=== PATIENT | male | born 1960 | race Caucasian/White ===

== ENCOUNTER 2019-01-20 08:09 | Day surgery (SDC) | payer BC ==
[2019-01-16 11:31] VITALS: BMI 31.5
[2019-01-20] MEDS ORDERED: LIDOCAINE 1% 20 ML VIAL (10MG/ML) FOR IV START INTRADERMA PRN (08:27)
[2019-01-20] MEDS ORDERED: LACTATED RINGERS 1,000 ML IV SCH (08:27)
[2019-01-20 08:30] VITALS: TEMP 98.1
--- NOTE | 2019-01-20 10:18 | P.GSHP ---
History of Present Illness H&P Date: 01/20/19 Chief Complaint: GI bleed, Hemoccult positive This is a 5-year-old male who presents today for colonoscopy. Patient has Hemoccult-positive. He denies any bright red blood per rectum. Past Medical History Past Medical History: Asthma, GERD/Reflux, Hypertension Additional Past Medical History / Comment(s): envionmental allergies. 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, surgery to repair tendons thumb Past Anesthesia/Blood Transfusion Reactions: No Reported Reaction Smoking Status: Former smoker - Past Family History Sister(s) Family Medical History: Coronary Artery Disease (CAD), Diabetes Mellitus Father Family Medical History: Myocardial Infarction ([place]) Additional Family Medical History / Comment(s): at 39 heart attack Medications and Allergies Home Medications Medication Instructions Recorded Confirmed Type Ascorbic Acid [Vitamin C] 500 mg PO DAILY 01/16/19 01/20/19 History Budesonide/Formoterol Fumarate 2 puff INHALATION BID 01/16/19 01/20/19 History [Symbicort 160-4.5 Mcg Inhaler] Budesonide/Formoterol Fumarate 1 puff INHALATION BID 01/16/19 01/20/19 History [Symbicort 80-4.5 Mcg Inhaler] Glucosamine/Chondr Harrell A Sod [Osteo 1 each PO DAILY 01/16/19 01/20/19 History Bi-Flex Caplet] Losartan Potassium 50 mg PO DAILY 01/16/19 01/20/19 History Montelukast [Singulair] 10 mg PO DAILY 01/16/19 01/20/19 History Multivitamin/Iron/Folic Acid 1 each PO DAILY 01/16/19 01/20/19 History [Centrum Adults Tablet] amLODIPine BESYLATE 5 mg PO DAILY 01/16/19 01/20/19 History Allergies Allergy/AdvReac Type Severity Reaction Status Date / Time cat dander Allergy Unknown Verified 01/20/19 08:27 tree and shrub pollen Allergy Unknown Verified 01/20/19 08:27 Surgical - Exam Vital Signs Temp Pulse Resp BP Pulse Ox 98.1 F 78 16 163/90 94 L 01/20/19 08:27 01/20/19 08:27 01/20/19 08:27 01/20/19 08:27 01/20/19 08:27 - General well developed, well nourished, no distress - Eyes PERRL - ENT normal pinna - Neck no masses - Respiratory normal expansion - Cardiovascular Rhythm: regular - Abdomen Abdomen: soft, non tender Assessment and Plan Assessment: Hemoccult-positive stool. We'll perform colonoscopy.
--- NOTE | 2019-01-20 10:34 | P.OP ---
Date of Procedure: 01/20/19 Preoperative Diagnosis: Hemoccult-positive stool Postoperative Diagnosis: Rectal polyp Diverticulosis Procedure(s) Performed: Colonoscopy Anesthesia: MAC Surgeon: Jhonatan Gutierrez Pathology: other (Rectal polyp) Condition: stable Disposition: PACU Description of Procedure: The patient's placed on the endoscopy table in the lateral position. He received IV sedation per digital rectal exam was performed which revealed no abnormalities. The flexible colonoscope was then placed patient anus and passed throughout the entire colon. The ileocecal valve was visualized. The cecum, ascending and transverse colon appeared normal. In the descending and sigmoid colon there was extensive diverticular changes. There is no unsteady diverticulitis. Scope was then brought back the rectum and at the 20 cm cecil there was a sessile polyp and this was removed with the snare and cold forcep. Scope was withdrawn for patient.
[2019-01-20 10:52] VITALS: RESP 18
[2019-01-20 11:44] VITALS: BP 122/75; PULSE 71
== END 2019-01-20 11:15 | disposition home or self-care (01) ==
LOC: ORWHC2ENDO 08:09
PROVIDERS: ATTEND Surgery
DX: K62.1 Rectal polyp (principal); I10 Essential (primary) hypertension; J45.909 Unspecified asthma, uncomplicated; K21.9 Gastro-esophageal reflux disease without esophagitis; Z82.49 Family history of ischemic heart disease and other diseases of the circulatory system; Z83.3 Family history of diabetes mellitus; Z87.442 Personal history of urinary calculi; Z87.891 Personal history of nicotine dependence; Z79.51 Long term (current) use of inhaled steroids; Z79.899 Other long term (current) drug therapy; Z91.048 Other nonmedicinal substance allergy status
CPT/HCPCS: 45380; 45385; 88305

== ENCOUNTER → 2019-02-06 | Outpatient (CLI) | payer BC ==
[2019-02-06 07:36] LABS: Basophils # (A) 0.1 k/uL (0-0.2); Basophils % (A) 1 %; Eosinophils # (A) 0.7 k/uL (0-0.7); Eosinophils % (A) 7 %; HCT 40.3 % (39.0-53.0); HGB 14.3 gm/dL (13.0-17.5); Lymphocytes # (A) 3.4 k/uL (1.0-4.8); Lymphocytes % (A) 33 %; MCH 29.1 pg (25.0-35.0); MCHC 35.4 g/dL (31.0-37.0); MCV 82.2 fL (80.0-100.0); Mean Platelet Volume 5.9; Monocytes # (A) 0.5 k/uL (0-1.0); Monocytes % (A) 5 %; Neutrophils # (A) 5.3 k/uL (1.3-7.7); Neutrophils % (A) 52 %; Platelet Count 267 k/uL (150-450); RDW 12.7 % (11.5-15.5)
[2019-02-06 16:15] LABS: African American GFR (CKD) 84.1 (60.0-200.0); Albumin 4.3 g/dL (3.80-4.90); Albumin/Globulin Ratio 2.15 (1.60-3.17); Anion Gap 9.5 mmol/L (4.00-12.00); Calcium 9.5 mg/dL (8.7-10.3); Carbon Dioxide 24.5 mmol/L (21.6-31.8); Potassium 4.7 mmol/L (3.5-5.5); Total Bilirubin 0.6 mg/dL (0.3-1.2); Total Protein 6.3 g/dL (6.2-8.2)
== END | disposition home or self-care (01) ==
LOC: LABWHC1 06:39
PROVIDERS: ATTEND Nurse Practitioner Acute Care
DX: G45.9 Transient cerebral ischemic attack, unspecified (principal)
CPT/HCPCS: 36415; 80053; 80061; 83090; 85025

== ENCOUNTER 2019-02-19 21:15 | Inpatient (IN) | payer BC ==
[2019-02-19 22:03] LABS: Basophils # (A) 0.2 k/uL (0-0.2); Basophils % (A) 1 %; Eosinophils # (A) 0.3 k/uL (0-0.7); Eosinophils % (A) 2 %; HCT 41.8 % (39.0-53.0); HGB 14.1 gm/dL (13.0-17.5); Lymphocytes # (A) 3.7 k/uL (1.0-4.8); Lymphocytes % (A) 25 %; MCH 28.4 pg (25.0-35.0); MCHC 33.6 g/dL (31.0-37.0); MCV 84.5 fL (80.0-100.0); Mean Platelet Volume 7.1; Monocytes # (A) 0.7 k/uL (0-1.0); Monocytes % (A) 5 %; Neutrophils % (A) 66 %; Platelet Count 278 k/uL (150-450); RBC 4.95 m/uL (4.30-5.90); RDW 12.6 % (11.5-15.5); WBC 15.1 k/uL (3.8-10.6)
--- NOTE | 2019-02-19 22:05 | CT ---
EXAMINATION TYPE: CT brain wo con for TPA DATE OF EXAM: 02/19/2019 COMPARISON: Headache HISTORY: Headache and arm numbness. CT DLP: 1131.4 mGycm Automated exposure control for dose reduction was used. FINDINGS: There is some cerebral atrophy. There is no mass effect nor midline shift. There is no sign of intrac ranial hemorrhage. The calvarium is intact. There is a 2 x 1 cm linear area of hypodensity right cere bellar hemisphere consistent with old cerebellar vertical infarct. IMPRESSION: CEREBRAL ATROPHY. 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 NO ACUTE INTRACRANIAL ABNORMALITY.
[2019-02-19 22:18] LABS: African American GFR (CKD) >90 (>60 ml/min/1.73 sqM); Anion Gap 11 mmol/L; Blood Urea Nitrogen 17 mg/dL (9-20); Calcium 9.3 mg/dL (8.4-10.2); Carbon Dioxide 22 mmol/L (22-30); Chloride 104 mmol/L (98-107); Glucose 120 mg/dL (74-99); Sodium 137 mmol/L (137-145); Total Bilirubin 0.7 mg/dL (0.2-1.3)
[2019-02-19 22:29] LABS: ALT 29 U/L (21-72); AST 36 U/L (17-59); Albumin 4.4 g/dL (3.5-5.0); Alkaline Phosphatase 37 U/L (38-126); Potassium 4.7 mmol/L (3.5-5.1); Total Protein 7.4 g/dL (6.3-8.2)
[2019-02-19] MEDS ORDERED: diphenhydrAMINE 50 MG/ML 1 ML VIAL IVP STA (22:36)
[2019-02-19] MEDS ORDERED: METOCLOPRAMIDE 5 MG/ML 2 ML VIAL IVP STA (22:36)
[2019-02-19] MEDS ORDERED: KETOROLAC 30 MG/ML 1 ML VIAL IVP STA (22:36)
--- NOTE | 2019-02-19 22:39 | ED ---
Headache HPI - General Chief Complaint: Headache Stated Complaint: Headache, nausea Time Seen by Provider: 02/19/19 21:43 Mode of arrival: EMS Limitations: no limitations - History of Present Illness Initial Comments: This patient is 59-year-old man who presents to be evaluated for headache. Patient states that the pain came on tonight while he was watching television. He describes it as being in the right frontal and right retro-orbital area. He states that when it came on it was severe, it has subsequently decreased in intensity a little bit. Pain is constant, sharp. He has not noted any worsening or relieving factors. There was also little bit of nausea and he did vomit. The patient states that he also has had some right sided numbness that has been going on for approximately 2 weeks. The patient states that when this came on, February 01, he went to [facility]. He had a CAT scan there, and then has subsequent only followed up with the neurologist through [facility]. He has had both MRI and MRA performed within the past week, but is not aware of any results yet. Patient states that the facial and leg numbness that had developed 2 weeks ago have improved though he does continue to have some right arm numbness. He rates it mild. No new neurologic symptoms associated with this headache. MD Complaint: headache -: hour(s) Onset Description: sudden Location: right, frontal, retro-orbital Severity: severe Quality: aching Consistency: constant Improves With: nothing Worsens With: none Context: occurred at rest Associated Symptoms: nausea Treatments Prior to Arrival: none - Related Data Home Medications Medication Instructions Recorded Confirmed Budesonide/Formoterol Fumarate 2 puff INHALATION RT-BID 01/16/19 02/19/19 [Symbicort 80-4.5 Mcg Inhaler] Montelukast [Singulair] 10 mg PO DAILY 01/16/19 02/19/19 amLODIPine BESYLATE 5 mg PO DAILY 01/16/19 02/19/19 Previous Rx's Medication Instructions Recorded Aspirin 325 mg PO DAILY tab 02/25/19 Atorvastatin [Lipitor] 40 mg PO HS tab 02/25/19 Docusate [Colace] 100 mg PO Q8HR cap 02/25/19 Famotidine [Pepcid] 20 mg PO BID tab 02/25/19 Warfarin [Coumadin] 5 mg PO ONCE@1800 tab 02/25/19 Allergies Allergy/AdvReac Type Severity Reaction Status Date / Time cat dander Allergy Unknown Verified 02/19/19 22:43 tree and shrub pollen Allergy Unknown Verified 02/19/19 22:43 Review of Systems ROS Statement: Those systems with pertinent positive or pertinent negative responses have been documented in the HPI. ROS Other: All systems not noted in ROS Statement are negative. Constitutional: Denies: fever, chills, weakness Eyes: Reports: as per HPI, eye pain. Denies: eye discharge, vision change ENT: Denies: ear pain, hearing loss Respiratory: Denies: cough, dyspnea Cardiovascular: Denies: chest pain, palpitations, syncope Gastrointestinal: Reports: as per HPI, nausea, vomiting. Denies: abdominal pain Genitourinary: Denies: dysuria, hematuria Musculoskeletal: Denies: back pain Skin: Denies: rash Neurological: Reports: as per HPI, headache, numbness. Denies: weakness, confusion, vertigo Hematological/Lymphatic: Denies: easy bleeding Past Medical History Past Medical History: Asthma, GERD/Reflux, Hypertension Additional Past Medical History / Comment(s): envionmental allergies. 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, surgery to repair tendons thumb Past Anesthesia/Blood Transfusion Reactions: No Reported Reaction Past Psychological History: No Psychological Hx Reported Smoking Status: Former smoker Past Alcohol Use History: Occasional Past Drug Use History: None Reported - Past Family History Sister(s) Family Medical History: Coronary Artery Disease (CAD), Diabetes Mellitus Father Family Medical History: Myocardial Infarction ([place]) Additional Family Medical History / Comment(s): at 39 heart attack General Exam Limitations: no limitations General appearance: alert, in no apparent distress Head exam: Present: atraumatic, normocephalic Eye exam: Present: normal appearance, PERRL, EOMI. Absent: scleral icterus, conjunctival injection, nystagmus ENT exam: Present: normal oropharynx Neck exam: Present: normal inspection Respiratory exam: Present: normal lung sounds bilaterally. Absent: respiratory distress, wheezes, rales, rhonchi, stridor Cardiovascular Exam: Present: regular rate, normal rhythm, normal heart sounds. Absent: systolic murmur, diastolic murmur, rubs, gallop GI/Abdominal exam: Present: soft. Absent: distended, tenderness, guarding, rebound, rigid, mass Extremities exam: Present: normal inspection, normal capillary refill. Absent: pedal edema, calf tenderness Back exam: Present: normal inspection. Absent: CVA tenderness (R), CVA tenderness (L) Neurological exam: Present: alert, oriented X3, CN II-XII intact. Absent: motor sensory deficit Skin exam: Present: warm, dry, intact, normal color. Absent: rash Course Vital Signs 02/19/19 02/19/19 02/19/19 21:24 22:23 23:57 Temperature 98.6 F Pulse Rate 65 86 83 Pulse Rate [ Left Pulse Oximetery] Respiratory 16 18 19 Rate Blood Pressure 140/90 139/81 131/88 O2 Sat by Pulse 97 97 98 Oximetry 02/20/19 00:45 Temperature Pulse Rate Pulse Rate [ 72 Left Pulse Oximetery] Respiratory 17 Rate Blood Pressure O2 Sat by Pulse Oximetry Medical Decision Making - Medical Decision Making Patient is 59-year-old man with right retro-orbital headache. On the patient's computed tomography scan tonight there is a right cerebellar infarct identified which is not on the patient's computed tomography scan from 02/01. We'll admit patient to have neurology consultation. - Lab Data Result diagrams: 02/23/19 06:20 02/19/19 21:30 Lab Results 02/19/19 02/19/19 02/19/19 Range/Units 21:30 21:30 21:30 WBC 15.1 H (3.8-10.6) k/uL RBC 4.95 (4.30-5.90) m/uL Hgb 14.1 (13.0-17.5) gm/dL Hct 41.8 (39.0-53.0) % MCV 84.5 (80.0-100.0) fL MCH 28.4 (25.0-35.0) pg MCHC 33.6 (31.0-37.0) g/dL RDW 12.6 (11.5-15.5) % Plt Count 278 (150-450) k/uL Neutrophils % 66 % Lymphocytes % 25 % Monocytes % 5 % Eosinophils % 2 % Basophils % 1 % Neutrophils # 10.0 H (1.3-7.7) k/uL Lymphocytes # 3.7 (1.0-4.8) k/uL Monocytes # 0.7 (0-1.0) k/uL Eosinophils # 0.3 (0-0.7) k/uL Basophils # 0.2 (0-0.2) k/uL ESR Cancelled Sodium 137 (137-145) mmol/L Potassium 4.7 (3.5-5.1) mmol/L Chloride 104 (98-107) mmol/L Carbon Dioxide 22 (22-30) mmol/L Anion Gap 11 mmol/L BUN 17 (9-20) mg/dL Creatinine 0.85 (0.66-1.25) mg/dL Est GFR (CKD-EPI)AfAm >90 (>60 ml/min/1.73 sqM) Est GFR (CKD-EPI)NonAf >90 (>60 ml/min/1.73 sqM) Glucose 120 H (74-99) mg/dL Estimated Ave Glu mg/dL Hemoglobin A1c (4.0-6.0) % Calcium 9.3 (8.4-10.2) mg/dL Total Bilirubin 0.7 (0.2-1.3) mg/dL AST 36 (17-59) U/L ALT 29 (21-72) U/L Alkaline Phosphatase 37 L (38-126) U/L Troponin I <0.012 (0.000-0.034) ng/mL Total Protein 7.4 (6.3-8.2) g/dL Albumin 4.4 (3.5-5.0) g/dL 02/19/19 02/19/19 Range/Units 22:30 22:30 WBC (3.8-10.6) k/uL RBC (4.30-5.90) m/uL Hgb (13.0-17.5) gm/dL Hct (39.0-53.0) % MCV (80.0-100.0) fL MCH (25.0-35.0) pg MCHC (31.0-37.0) g/dL RDW (11.5-15.5) % Plt Count (150-450) k/uL Neutrophils % % Lymphocytes % % Monocytes % % Eosinophils % % Basophils % % Neutrophils # (1.3-7.7) k/uL Lymphocytes # (1.0-4.8) k/uL Monocytes # (0-1.0) k/uL Eosinophils # (0-0.7) k/uL Basophils # (0-0.2) k/uL ESR 4 Sodium (137-145) mmol/L Potassium (3.5-5.1) mmol/L Chloride (98-107) mmol/L Carbon Dioxide (22-30) mmol/L Anion Gap mmol/L BUN (9-20) mg/dL Creatinine (0.66-1.25) mg/dL Est GFR (CKD-EPI)AfAm (>60 ml/min/1.73 sqM) Est GFR (CKD-EPI)NonAf (>60 ml/min/1.73 sqM) Glucose (74-99) mg/dL Estimated Ave Glu mg/dL 105 Hemoglobin A1c 5.3 (4.0-6.0) % Calcium (8.4-10.2) mg/dL Total Bilirubin (0.2-1.3) mg/dL AST (17-59) U/L ALT (21-72) U/L Alkaline Phosphatase (38-126) U/L Troponin I (0.000-0.034) ng/mL Total Protein (6.3-8.2) g/dL Albumin (3.5-5.0) g/dL - EKG Data -: EKG Interpreted by Me EKG shows normal: sinus rhythm, axis (Normal), intervals (Normal), QRS complexes (Incomplete right bundle branch block), ST-T waves (Normal) Rate: normal (Rate 76 bpm) Disposition Clinical Impression: Headache, Stroke Disposition: ADMITTED IP TO THIS [facility] Condition: Fair
[2019-02-19] MEDS ORDERED: ONDANSETRON 4 MG/2 ML VIAL IVP STA (22:43)
[2019-02-20] MEDS ORDERED: ASPIRIN 325 MG TAB PO STA (00:12)
[2019-02-20] MEDS: SODIUM CHLORIDE 0.9% 1,000 ML IV SCH ×2 (00:32→23:20)
[2019-02-20] MEDS: SYMBICORT 80-4.5 MCG INHALER INHALATION SCH ×2 (06:58→20:19)
[2019-02-20] MEDS: MONTELUKAST 10 MG TAB PO SCH (08:12)
[2019-02-20] MEDS: DOCUSATE 100 MG CAP PO SCH ×3 (08:12→23:20)
[2019-02-20] MEDS: FAMOTIDINE 20 MG TAB PO SCH ×2 (08:12→20:15)
[2019-02-20] MEDS: amLODIPine 5 MG TAB PO SCH (08:12)
[2019-02-20] MEDS ORDERED: LOSARTAN 50 MG TAB PO SCH (09:00)
--- NOTE | 2019-02-20 10:45 | P.CNNES ---
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 Patient states that over 2 weeks ago on 02/01/2019 he got up and noticed right side of body became numb. It affected whole right side of the body. He went to [facility], patient he underwent computed tomography scan of the head and the cervical spine which were normal. Computed tomography scan of cervical spine showed [id number] degenerative changes within the cervical spine with bilateral intervertebral foraminal narrowing at C6 7. He was released and was recommended to follow up with neurologist locally. Patient saw Dr Ramirez, who initiated an MRI of the brain and MRA of the head. Patient states that his right arm has stayed numb, although the right leg has somewhat improved or he has gotten used to it. He was otherwise doing fine. On 02/15/2019, at night he threw up, and felt lightheaded, dizzy. On Sunday he stayed lightheaded. He was otherwise stable. Last night he developed sudden onset of headache involving right orbital temporal region. He took something for headache and then got sweaty, weird feeling, eyes became blurred and he felt his eyes were shaky, "googly eyes". He started vomiting felt vertigo. Due to these symptoms he decided to come to the hospital. Patient underwent computed tomography scan of the head last night, which revealed cerebral atrophy. Old right cerebellar cortical infarct. No acute intracranial abnormality. This infarct is new as compared to the computed tomography scan of head from 02/01/2019. Patient was not a candidate for TPA, because of presence of subacute stroke. Patient states that he does not take any antiplatelet medication at home. He takes losartan, amlodipine, Symbicort and Singulair. Patient has history of hypertension, but denies diabetes. He does not know about his cholesterol status. He quit tobacco 20 years ago. He drinks beer couple times a week. Patient denies any history of head or neck trauma in the last 6 months to a year. Patient states that he does see chiropractor once a month. The last time he saw the chiropractor was about couple months ago. He does get neck adjustment. Patient's EKG showed normal sinus rhythm with right bundle branch b lock. Review of Systems As mentioned above in detail. She notices hoarse voice. Numbness of right side of the body. Denies diplopia. Denies chest pain, shortness of breath. Severe nausea vomiting. Past Medical History Past Medical History: Asthma, CVA/TIA, GERD/Reflux, Hypertension Additional Past Medical History / Comment(s): envionmental allergies. 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, surgery to repair tendons thumb, colonoscopy Past Anesthesia/Blood Transfusion Reactions: No Reported Reaction Past Psychological History: No Psychological Hx Reported Smoking Status: Former smoker Past Alcohol Use History: Occasional Additional Past Alcohol Use History / Comment(s): smoked 15-20 years 1- 1 1/2 ppd quit 20 years ago Past Drug Use History: None Reported - Past Family History Sister(s) Family Medical History: Coronary Artery Disease (CAD), Diabetes Mellitus Father Family Medical History: Myocardial Infarction ([place]) Additional Family Medical History / Comment(s): at 39 heart attack Medications and Allergies Home Medications Medication Instructions Recorded Confirmed Type Budesonide/Formoterol Fumarate 2 puff INHALATION RT-BID 01/16/19 02/19/19 Histo ry [Symbicort 80-4.5 Mcg Inhaler] Losartan Potassium 50 mg PO DAILY 01/16/19 02/19/19 History Montelukast [Singulair] 10 mg PO DAILY 01/16/19 02/19/19 History amLODIPine BESYLATE 5 mg PO DAILY 01/16/19 02/19/19 History Allergies Allergy/AdvReac Type Severity Reaction Status Date / Time cat dander Allergy Unknown Verified 02/19/19 22:43 tree and shrub pollen Allergy Unknown Verified 02/19/19 22:43 Physical Examination - Vital Signs Vital Signs: Vital Signs Temp Pulse Pulse Resp BP BP Pulse Ox 02/20/19 08:13 98.3 F 63 16 127/73 96 02/20/19 04:00 98.5 F 70 17 127/73 94 L 02/20/19 00:50 97.7 F 72 17 126/72 96 02/20/19 00:45 72 17 02/19/19 23:57 83 19 131/88 98 02/19/19 22:23 86 18 139/81 97 02/19/19 21:24 98.6 F 65 16 140/90 97 Intake and Output 02/19/19 02/20/19 02/20/19 22:59 06:59 14:59 Intake Total 240 Output Total 500 Balance -500 240 Intake: Oral 240 Output: Urine 500 Other: Voiding Method Urinal Urinal # Voids 2 Weight 99.79 kg 100 kg On examination patient is a middle aged male, who is frequently vomiting. He did vomit in front of me. His speech is mildly hoarse but denies any aphasia or dysarthria. On cranial nerve examination his pupils are round and reacting. Patient has slight right Ivory's syndrome with smaller pupil size, and decreased sweating on the right side of the forehead. Face is symmetric and tongue protrudes slightly to the right. Palatal elevation is slig htly less on the right. On muscle strength testing there is no pronator drift and the strength is normal in arms and legs distally and proximally. Reflexes are 1+ and plantars downgoing. Sensory to touch is decreased on right side of the body. His temperature sensation has crossed findings, with decreased temperature sensation on right side of the face, but left side of the body. There is very mild ataxia for [id number] testing on the right. No definitive dysdiadochokinesia. Tone and bulk of muscles normal. I did not see patient walked due to nausea vomiting, but the nursing report states patient was off balance. Results - Laboratory Findings CBC and BMP: 02/20/19 11:40 02/19/19 21:30 Abnormal Lab Findings: Abnormal Labs 02/19/19 02/19/19 21:30 21:30 WBC 15.1 H Neutrophils # 10.0 H Glucose 120 H Alkaline Phosphatase 37 L Assessment and Plan Assessment: * Probable ischemic stroke involving the right PICA distribution. Patient has Wallenberg syndrome. Rule out vertebral artery dissection. * Hypertension Plan: * Patient had MRI of the brain and MRA performed recently at another facility. We'll try to obtain those records as soon as possible. * Patient may need a CTA of head and neck to evaluate for vertebral artery dissection. * Patient will be started on aspirin 325 mg and Plavix 75 mg daily for now. * Pepcid 20 mg twice a day for gastric ulcer prophylaxis. * 2-D echo with bubble study to rule out PFO. * Fasting a.m. lipid panel and hemoglobin A1c. * PT and OT. * We will follow with you. Addendum: We received outside medical records. Patient had MRI of the brain without contrast on 02/11/2019, which was normal. Mild to moderate nonspecific white matter changes presumed on basis of product of chronic small vessel ischemic change in patient of this age. MRI of the lum bar spine from 02/11/2019 showed multilevel degenerative changes in lumbar spine. MRI of the cervical spine from 02/11/2019 showed multilevel degenerative changes most prominent at C5 6 and C6 7 levels. No significant spinal stenosis. 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 Diminutive flow in the most distal aspect of the artery, right before the basilar artery was seen on the MRA brain on the same day and is likely retrograde from the basilar artery. No significant stenosis in, nor internal carotid arteries bilaterally. Patient's homocysteine is 7.22 which is normal. CBC is normal. Chem-20 normal. Patient also underwent CTA of head and neck today at [facility]. It revealed left vertebral artery from neck to the skull base is not identified consistent with occlusion. Please see separate report for details. I had a sustainability project coordinator reviewed the films with neuro intervention, if patient would be a candidate for thrombectomy or angiography. Case was discussed with , who did not recommend any intervention, only medical management. Based upon this formation, patient will be started on IV heparin to prevent further stroke progression. Patient will be continued on aspirin 325 mg also. We will stop Plavix. We will await MRI of the brain.
[2019-02-20] MEDS ORDERED: CLOPIDOGREL 75 MG TAB PO STA (10:53)
[2019-02-20] MEDS ORDERED: ONDANSETRON 4 MG/2 ML VIAL IVP PRN (10:53)
--- NOTE | 2019-02-20 11:32 | P.HPIM ---
History of Present Illness 59-year-old pleasant gentleman came in because of severe headache retro-orbital headache in the right side followed by vertigo or dizziness or spinning around and unstable gait. Patient had a CAT scan of the head which did not show any acute stroke but did show old cerebellar stroke. Patient was having symptoms of numbness on the right side of the body. As per the neuro exam by a neurologist patient still have this numbness in the right side of the face right side of the body. 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 Patient undergo repeat MRI and the CT angios. Patient has LDL of 150 because of just start him on statin and neurologist at morning aspirin and Plavix which will be continued echocardiogram will be obtained. Patient was having nausea vomiting as well Review of Systems REVIEW OF SYSTEMS: CONSTITUTIONAL: No fever, no malaise, no fatigue. HEENT: No recent visual problems or hearing problems. Denied any sore throat. CARDIOVASCULAR: No chest pain, orthopnea, PND, no palpitations, no syncope. PULMONARY: No shortness of breath, no cough, no hemoptysis. GASTROINTESTINAL: No diarrhea, no nausea, no abdominal pain. NEUROLOGICAL: As mentioned in HPI HEMATOLOGICAL: Denies any bleeding or petechiae. GENITOURINARY: Denies any burning micturition, frequency, or urgency. MUSCULOSKELETAL/RHEUMATOLOGICAL: Denies any joint pain, swelling, or any muscle pain. ENDOCRINE: Denies any polyuria or polydipsia. The rest of the 14-point review of systems is negative. Past Medical History Past Medical History: Asthma, CVA/TIA, GERD/Reflux, Hypertension Additional Past Medical History / Comment(s): envionmental allergies. 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, surgery to repair tendons thumb, colonoscopy Past Anesthesia/Blood Transfusion Reactions: No Reported Reaction Past Psychological History: No Psychological Hx Reported Smoking Status: Former smoker Past Alcohol Use History: Occasional Additional Past Alcohol Use History / Comment(s): smoked 15-20 years 1- 1 1/2 ppd quit 20 years ago Past Drug Use History: None Reported - Past Family History Sister(s) Family Medical History: Coronary Artery Disease (CAD), Diabetes Mellitus Father Family Medical History: Myocardial Infarction ([place]) Additional Family Medical History / Comment(s): at 39 heart attack Medications and Allergies Home Medications Medication Instructions Recorded Confirmed Type Budesonide/Formoterol Fumarate 2 puff INHALATION RT-BID 01/16/19 02/19/19 History [Symbicort 80-4.5 Mcg Inhaler] Losartan Potassium 50 mg PO DAILY 01/16/19 02/19/19 History Montelukast [Singulair] 10 mg PO DAILY 01/16/19 02/19/19 History amLODIPine BESYLATE 5 mg PO DAILY 01/16/19 02/19/19 History Allergies Allergy/AdvReac Type Severity Reaction Status Date / Time cat dander Allergy Unknown Verified 02/19/19 22:43 tree and shrub pollen Allergy Unknown Verified 02/19/19 22:43 Physical Exam Vitals: Vital Signs Temp Pulse Pulse Resp BP BP Pulse Ox 02/20/19 08:13 98.3 F 63 16 127/73 96 02/20/19 04:00 98.5 F 70 17 127/73 94 L 02/20/19 00:50 97.7 F 72 17 126/72 96 02/20/19 00:45 72 17 02/19/19 23:57 83 19 131/88 98 02/19/19 22:23 86 18 139/81 97 02/19/19 21:24 98.6 F 65 16 140/90 97 Intake and Output 02/19/19 02/20/19 02/20/19 22:59 06:59 14:59 Intake Total 240 Output Total 500 Balance -500 240 Intake: Oral 240 Output: Urine 500 Other: Voiding Method Urinal Urinal # Voids 2 Weight 99.79 kg 100 kg PHYSICAL EXAMINATION: GENERAL: The patient is alert and oriented x3, not in any acute distress. Well developed, well nourished. HEENT: Pupils are round and equally reacting to light. EOMI. No scleral icterus. No conjunctival pallor. Normocephalic, atraumatic. No pharyngeal erythema. No thyromegaly. CARDIOVASCULAR: S1 and S2 present. No murmurs, rubs, or gallops. PULMONARY: Chest is clear to auscultation, no wheezing or crackles. ABDOMEN: Soft, nontender, nondistended, normoactive bowel sounds. No palpable organomegaly. MUSCULOSKELETAL: No joint swelling or deformity. EXTREMITIES: No cyanosis, clubbing, or pedal edema. NEUROLOGICAL: Uvula deficits as mentioned about right-sided Ivory syndrome right-sided take loss of sensation with possible involvement of glossopharyngeal nerve and vagus nerve involvement causing hoarseness of voice which is very mild and the positive Romberg sign with eyes open. SKIN: No rashes. Results CBC & Chem 7: 02/19/19 21:30 02/19/19 21:30 Labs: Abnormal Lab Results - Last 24 Hours (Table) 02/19/19 02/19/19 Range/Units 21:30 21:30 WBC 15.1 H (3.8-10.6) k/uL Neutrophils # 10.0 H (1.3-7.7) k/uL Glucose 120 H (74-99) mg/dL Alkaline Phosphatase 37 L (38-126) U/L Thrombosis Risk Factor Assmnt - Choose All That Apply Any of the Below Risk Factors Present?: Yes Each Factor Represents 1 point: Age 41-60 years, Obesity (BMI >25) Other Risk Factors: Yes Each Risk Factor Represents 5 Points: Stroke (< 1 month) Thrombosis Risk Factor Assessment Total Risk Factor Score: 7 Thrombosis Risk Factor Assessment Level: High Risk Assessment and Plan Plan: -Possible cerebrovascular accident involving the posterior circulation on the right side in vertebral basilar territory. 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 Patient's Plavix will be disc and urine patient was started on IV heparin as per recommendations from neurology and patient will be continued on aspirin. We'll await CT angios and repeat MRI will be obtained without contrast. -History of previous CVA in the past next and have an hypertension next and heparin as well without any acute exacerbation -Hypertension
--- NOTE | 2019-02-20 12:07 | P.CONS ---
History of Present Illness - Chief Complaint Gait disturbance - History of Present Illness I had the opportunity to see patient for inpatient rehab consultation with regard to gait disturbance. Patient admitted February 20 acute onset headache, visual blurring and right-sided weakness. Seen in consultation by Dr. Khalil who diagnosed right PICA infarct. Head CT demonstrates atrophy and old right cerebellar infarct. PT, OT, [employer] prescribed. Previous functional history as elicited from patient: 59-year-old right-handed white male who is lives in one floor home with . Works full-time. does cooking and laundry generally. Patient independent with driving, standing shower and gait without device. Her Bozzo is regular doctor. History smoking around past and has occasional drink. Family history of mother with hypertension. Review of Systems Review of systems: ENT: Denies sneezes or discharge. Eyes: Visual blurring. Cardiac: Denies chest pain or palpitation. Pulmonary: Denies cough or shortness of breath. Gastrointestinal: Denies nausea, emesis, constipation, diarrhea. Genitourinary: Denies discharge or frequency. Musculoskeletal: Denies muscle or bone aches. Neurologic: Headache, right-sided weakness and numbness, discoordination. Endocrine: Denies shakes or sweats. Oncology: Denies cancers. Dermatologic: Denies rash, itching, pruritus. ALLERGY/immunology: Denies sneezes, rashes. Past Medical History Past Medical History: Asthma, CVA/TIA, GERD/Reflux, Hypertension Additional Past Medical History / Comment(s): envionmental allergies. 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, surgery to repair tendons thumb, colonoscopy Past Anesthesia/Blood Transfusion Reactions: No Reported Reaction Past Psychological History: No Psychological Hx Reported Smoking Status: Former smoker Past Alcohol Use History: Occasional Additional Past Alcohol Use History / Comment(s): smoked 15-20 years 1- 1/2 ppd quit 20 years ago Past Drug Use History: None Reported - Past Family History Sister(s) Family Medical History: Coronary Artery Disease (CAD), Diabetes Mellitus Father Family Medical History: Myocardial Infarction ([place]) Additional Family Medical History / Comment(s): at 39 heart attack Medications and Allergies Home Medications Medication Instructions Recorded Confirmed Type Budesonide/Formoterol Fumarate 2 puff INHALATION RT-BID 01/16/19 02/19/19 History [Symbicort 80-4.5 Mcg Inhaler] Losartan Potassium 50 mg PO DAILY 01/16/19 02/19/19 History Montelukast [Singulair] 10 mg PO DAILY 01/16/19 02/19/19 History amLODIPine BESYLATE 5 mg PO DAILY 01/16/19 02/19/19 History Allergies Allergy/AdvReac Type Severity Reaction Status Date / Time cat dander Allergy Unknown Verified 02/19/19 22:43 tree and shrub pollen Allergy Unknown Verified 02/19/19 22:43 Physical Exam Vitals: Vital Signs Temp Pulse Pulse Resp BP BP Pulse Ox 02/20/19 08:13 98.3 F 63 16 127/73 96 02/20/19 04:00 98.5 F 70 17 127/73 94 L 02/20/19 00:50 97.7 F 72 17 126/72 96 02/20/19 00:45 72 17 02/19/19 23:57 83 19 131/88 98 02/19/19 22:23 86 18 139/81 97 02/19/19 21:24 98.6 F 65 16 140/90 97 Intake and Output 02/19/19 02/20/19 02/20/19 22:59 06:59 14:59 Intake Total 240 Output Total 500 Balance -500 240 Intake: Oral 240 Output: Urine 500 Other: Voiding Method Urinal Urinal # Voids 2 Weight 99.79 kg 100 kg Skin: Good color, texture, turgor. General: Medium build and comfortable appearance. Head: Normocephalic, atraumatic. Eyes: Symmetric. Pupils equal round. Ears: Symmetric. Hearing within normal limits. Mouth: Clear. Neck: Supple. Carotid without bruit. Cardiac: Regular rate and rhythm. Lungs: Clear anteriorly and posteriorly. Abdomen: Soft active nontender. Extremities: Normal tone. Neurological: Mental status: Alert, cooperative, pleasant. Cranial nerves: Symmetric facial tone and trapezius. Motor: Active movement all 4 limbs. Ataxic and right side. Sensation: Intact throughout. DTRs: Symmetric and equal throughout. Mobility: Did not attempt to sit or stand as going for MRI. Results CBC & Chem 7: 02/19/19 21:30 10/16/19 21:30 Labs: Abnormal Lab Results - Last 24 Hours (Table) 02/19/19 02/19/19 Range/Units 21:30 21:30 WBC 15.1 H (3.8-10.6) k/uL Neutrophils # 10.0 H (1.3-7.7) k/uL Glucose 120 H (74-99) mg/dL Alkaline Phosphatase 37 L (38-126) U/L Assessment and Plan (1) Stroke Current Visit: Yes Status: Acute Code(s): I63.9 - CEREBRAL INFARCTION, UNSPECIFIED SNOMED Code(s): 104196415 Plan: Impression: 1. Gait disturbance. 2. Right cerebellar with right-sided ataxia and weakness. 3. Headache. 4. Hypertension. 5. Asthma. 6. History of stroke. Comments and plan: At this time PT, OT, [employer] prescribed and already ongoing. Overweight there are notes. site worker reports that they're suggesting benefit of inpatient rehab and this would seem reasonable. Patient seem agreeable if necessary.
[2019-02-20 12:14] LABS: Basophils # (A) 0.1 k/uL (0-0.2); Basophils % (A) 0 %; Eosinophils % (A) 0 %; HCT 41.3 % (39.0-53.0); Lymphocytes # (A) 1.6 k/uL (1.0-4.8); Lymphocytes % (A) 10 %; MCH 29.3 pg (25.0-35.0); MCHC 33.8 g/dL (31.0-37.0); MCV 86.7 fL (80.0-100.0); Mean Platelet Volume 6.7; Monocytes # (A) 0.7 k/uL (0-1.0); Monocytes % (A) 5 %; Neutrophils % (A) 84 %; Platelet Count 270 k/uL (150-450); RBC 4.76 m/uL (4.30-5.90); RDW 12.8 % (11.5-15.5); WBC 15.5 k/uL (3.8-10.6)
[2019-02-20 12:26] LABS: INR 0.9 (<1.2); Partial Thromboplastin Time 24.2 sec (22.0-30.0); Prothrombin Time 10.2 sec (9.0-12.0)
[2019-02-20] MEDS: HEPARIN SODIUM,PORCINE 5,000 UNIT/ML 1 ML VIAL IV PRN ×2 (12:47→20:23)
[2019-02-20] MEDS: HEPARIN SOD,PORK IN 0.45% NACL 25,000 UNIT in 0.45% NACL 1 250ML.BAG IV SCH (12:48)
--- NOTE | 2019-02-20 13:14 | CT ---
EXAMINATION TYPE: CT angio head neck DATE OF EXAM: 02/20/2019 HISTORY: Right cerebellar infarct COMPARISON: CT DLP: 1692.1 mGycm. Automated Exposure Control for Dose Reduction was Utilized. TECHNIQUE: CTA scan of the neck is performed without and with IV Contrast, patient injected with 65 mL of Isovue 370, axial images are obtained, coronal and sagittal reformatted images are reviewed. Th ree-D reconstructed images are created on an independent workstation and reviewed. Source images are reviewed. FINDINGS: Carotid/Vascular Structures: There is a three-vessel arch. Atheromatous plaque and is at the bilatera l carotid bifurcations more so on the left. Mild narrowing of less than 50% of the left internal mccarthy tid artery may be present. No significant stenosis is evident on the right. Cervical of [place]: Vertebral basilar system appears normal. Posterior cerebral vasculature is unrema rkable. Internal carotid arteries bifurcate normally into A1 and M1 segments. A2 segments are normal. The anterior communicating artery is patent. Left Posterior communicating artery is patent. Right po sterior communicating artery is patent. Other: Left parotid glands are not well visualized. Right parotid gland appears normal. Submandibular glands are normal. Subglottic airway is patent portion of thyroid visualized is normal. There is hyp odensity through the posterior lateral right cerebellum which can be compatible with prior infarct. T his is present on the CT brain on 02/19/2019 IMPRESSION: 1. Mild narrowing of the right internal carotid artery due to atheromatous plaquing. No significant s tenosis of the left internal carotid artery 2. Normal [place] of [place]
--- NOTE | 2019-02-20 15:09 | MR ---
EXAMINATION TYPE: MR brain wo con DATE OF EXAM: 02/20/2019 COMPARISON: CTA head and neck 02/20/2019, CT brain 02/19/2019 HISTORY: Headache, arm numbness, acute CVA CONTRAST: Performed utilizing 0 mL intravenous Gadavist gadolinium contrast. TECHNIQUE: Multiplanar, multiecho imaging on a 3.0 Sylvia magnet is performed through the brain. Stud y is performed within 24 hours of arrival to the hospital. The craniovertebral junction is normal. The pituitary is normal. Diffusion-weighted imaging is performed. There are small scattered areas of increased signal within the anterior inferior cerebellum compatible with acute infarct. This correlates with the CT findings. Flow voids are evident within the basilar artery the right vertebral artery the small left vertebral artery. Internal carotid artery and [place] vascular structures have normal size and signal . The right posterior communicating artery is well-visualized. Hyperintensity within the acute ischemic areas within the anterior-inferior cerebellum are again evid ent on the inversion recovery weighted sequences. Additionally, old microvascular ischemic type brown es are scattered throughout the centrum semiovale, and subcortical white matter within the bilateral cerebral hemispheres. Ventricles and sulci are appropriate for the patient age. IMPRESSIONS: 1. Acute ischemic changes within the anterior inferior right cerebellum.
[2019-02-20 16:49] LABS: Hemoglobin A1C 5.3 % (4.0-6.0)
--- NOTE | 2019-02-20 18:00 | ECHOF ---
Referral Reason:CVA MEASUREMENTS -------- HEIGHT: 180.3 cm WEIGHT: 99.8 kg BP: IVSd: 1.0 cm (0.6 - 1.1) LVIDd: 4.0 cm (3.9 - 5.3) LVPWd: 1.4 cm (0.6 - 1.1) IVSs: 2.2 cm LVIDs: 1.4 cm LVPWs: 2.1 cm Ao Diam: 3.6 cm (2.0 - 3.7) AV Cusp: 2.3 cm (1.5 - 2.6) LA Diam: 3.6 cm (2.7 - 3.8) MV EXCURSION: 19.132 mm (> 18.000) MV EF SLOPE: 181 mm/s (70 - 150) EPSS: 2.0 cm MV E Noel: 0.60 m/s MV DecT: 212 ms MV A Noel: 0.49 m/s MV E/A Ratio: 1.21 RAP: 5.00 mmHg RVSP: 10.49 mmHg FINDINGS -------- Sinus rhythm. This was a technically difficult study with suboptimal views. The left ventricular size is normal. There is mild concentric left ventricular hypertrophy. Overa ll left ventricular systolic function is normal with, an EF between 55 - 60 %. The RV was not well visualized. The left atrium was not well visualized. The right atrium was not well visualized. Lumason used The aortic valve was not well visualized. The mitral valve was not well visualized. The tricuspid valve was not well visualized. The pulmonic valve was not well visualized. CONCLUSIONS -------- 1. Sinus rhythm. 2. This was a technically difficult study with suboptimal views. 3. The left ventricular size is normal. 4. There is mild concentric left ventricular hypertrophy. 5. Overall left ventricular systolic function is normal with, an EF between 55 - 60 %. 6. The RV was not well visualized. 7. The left atrium was not well visualized. 8. The right atrium was not well visualized. 9. Lumason used 10. The aortic valve was not well visualized. 11. The mitral valve was not well visualized. 12. The tricuspid valve was not well visualized. 13. The pulmonic valve was not well visualized. PROVIDER NETWORK ANALYST: Mayda Infante [facility]
[2019-02-20] MEDS: ATORVASTATIN 40 MG TAB PO SCH (20:15)
[2019-02-21 03:12] LABS: Basophils % (A) 0 %; Eosinophils # (A) 0.1 k/uL (0-0.7); Eosinophils % (A) 1 %; HGB 12.4 gm/dL (13.0-17.5); Lymphocytes % (A) 31 %; MCH 29.7 pg (25.0-35.0); MCHC 34.6 g/dL (31.0-37.0); MCV 85.9 fL (80.0-100.0); Mean Platelet Volume 6.1; Monocytes # (A) 0.5 k/uL (0-1.0); Monocytes % (A) 4 %; Neutrophils # (A) 7.8 k/uL (1.3-7.7); Neutrophils % (A) 62 %; Platelet Count 252 k/uL (150-450); RBC 4.19 m/uL (4.30-5.90); RDW 12.8 % (11.5-15.5); WBC 12.7 k/uL (3.8-10.6)
[2019-02-21 03:13] LABS: Cholesterol 197 mg/dL (<200); HDL Cholesterol 32 mg/dL (40-60); LDL Cholesterol,Calculated 126 mg/dL (0-99); Triglycerides 193 mg/dL (<150)
[2019-02-21] MEDS: HEPARIN SODIUM,PORCINE 5,000 UNIT/ML 1 ML VIAL IV PRN (03:33)
[2019-02-21] MEDS: HEPARIN SOD,PORK IN 0.45% NACL 25,000 UNIT in 0.45% NACL 1 250ML.BAG IV SCH (06:40)
[2019-02-21] MEDS ORDERED: CLOPIDOGREL 75 MG TAB PO SCH (09:00)
[2019-02-21] MEDS: SYMBICORT 80-4.5 MCG INHALER INHALATION SCH ×2 (09:17→19:06)
[2019-02-21] MEDS: amLODIPine 5 MG TAB PO SCH (09:23)
[2019-02-21] MEDS: ASPIRIN 325 MG TAB PO SCH (09:23)
[2019-02-21] MEDS: MONTELUKAST 10 MG TAB PO SCH (09:23)
[2019-02-21] MEDS: DOCUSATE 100 MG CAP PO SCH ×3 (09:23→20:13)
[2019-02-21] MEDS: FAMOTIDINE 20 MG TAB PO SCH ×2 (09:23→20:13)
--- NOTE | 2019-02-21 11:10 | P.PN ---
Subjective Progress Note Date: 02/21/19 Patient states he is doing much better. He states his nausea and vomiting has improved. He was able to walk more steady as compared to yesterday. Denies any new neurological symptoms. Patient underwent MRI of the brain without contrast yesterday, which reported acute ischemic changes within the anterior inferior, right cerebellum. However when I reviewed the MRI, there is definite acute ischemia in the right lateral Medulla, consistent with Wallenberg syndrome. 2-D echo showed EF 55-60%. Left-ventricular size is normal. The study was technically difficult with suboptimal views. Left atrium was not well visualized. Right atrium was not well visualized. Objective - Vital Signs Vital signs: Vital Signs Temp 97.7 F 02/21/19 08:00 Pulse 67 02/21/19 08:00 Resp 16 02/21/19 08:00 BP 138/78 02/21/19 08:00 Pulse Ox 97 02/21/19 08:00 Intake & Output 02/20/19 02/21/19 02/21/19 18:59 06:59 18:59 Intake Total 960 315.866 322.483 Balance 960 315.866 322.483 Weight 103.3 kg Intake: Intake, IV Titration 315.866 82.483 Amount Heparin Sod,Pork in 0.45% 215.866 42.483 NaCl 25,000 unit In 0.45 % NaCl 1 250ml.bag @ 10 UNITS/KG/HR 10 mls/hr IV .Q24H ALICIA Rx#:[id number] Sodium Chloride 0.9% 1, 100 40 000 ml @ 20 mls/hr IV . Q24H ALICIA Rx#:[id number] Oral 960 240 Other: Voiding Method Urinal Urinal # Voids 2 1 # Bowel Movements 1 - Exam Patient's mental status, speech and language functions are normal. Mild hoarse voice. On cranial nerve examination, pupils are round and reacting, visual mota are full. Extra ocular muscles are intact. His face is symmetric and tongue protrudes the midline. Patient has tingling sensation for fine touch on the face. Temperature is equal bilaterally in the face. However in the extremities, he has normal fine touch bilaterally. Temperature sensation is significantly decreased on the left side of the body, arm and leg. Patient has slight dysmetria for [id number] on the right. Tone and bulk of muscles no rmal. Muscle strength normal. Reflexes are diminished and plantars are equivocal. - Labs CBC & Chem 7: 02/21/19 02:20 02/19/19 21:30 Labs: Abnormal Lab Results - Last 24 Hours (Table) 02/20/19 02/21/19 02/21/19 Range/Units 11:40 02:20 02:20 WBC 15.5 H 12.7 H (3.8-10.6) k/uL RBC 4.19 L (4.30-5.90) m/uL Hgb 12.4 L (13.0-17.5) gm/dL Hct 36.0 L (39.0-53.0) % Neutrophils # 13.0 H 7.8 H (1.3-7.7) k/uL APTT (22.0-30.0) sec Triglycerides 193 H (<150) mg/dL LDL Cholesterol, Calc 126 H (0-99) mg/dL HDL Cholesterol 32 L (40-60) mg/dL 02/21/19 Range/Units 02:20 WBC (3.8-10.6) k/uL RBC (4.30-5.90) m/uL Hgb (13.0-17.5) gm/dL Hct (39.0-53.0) % Neutrophils # (1.3-7.7) k/uL APTT 41.9 H (22.0-30.0) sec Triglycerides (<150) mg/dL LDL Cholesterol, Calc (0-99) mg/dL HDL Cholesterol (40-60) mg/dL Assessment and Plan Assessment: * Acute ischemic stroke involving the right PICA distribution. 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 * Hypertension * Hyperlipidemia Plan: * Patient is doing much better since started on heparin drip. His neurological examination as well as symptoms have improved. * Continue heparin as per protocol. Continue aspirin 325 mg daily. * May start Coumadin now. Target INR 2-3. * Patient had a 2-D echo which was a poor study. Suggest PUMA to rule out PFO. * Agree with starting Lipitor 40 mg for hyperlipidemia. Hemoglobin A1c 5.3. LDL 126, HDL 32, cholesterol 197. Triglycerides 193. * PT OT. * Neurology coverage not available on the weekend.
--- NOTE | 2019-02-21 17:45 | P.PN ---
Subjective Progress Note Date: 02/21/19 Principal diagnosis: 59-year-old pleasant gentleman came in because of severe headache retro-orbital headache in the right side followed by vertigo or dizziness or spinning around a nd unstable gait. Patient had a CAT scan of the head which did not show any acute stroke but did show old cerebellar stroke. Patient was having symptoms of numbness on the right side of the body. As per the neuro exam by a neurologist patient still have this numbness in the right side of the face right side of the body. 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 Patient undergo repeat MRI and the CT angios. Patient has LDL of 150 because of just start him on statin and neurologist at morning aspirin and Plavix which will be continued echocardiogram will be obtained. Patient was having nausea vomiting as well 02/21/2019 Patient is sitting up in the chair in no acute distress. Patient was working with physical therapy this morning standing at the bedside and states he was having some difficulty with his right lower extremity feeling numb and weak al carson with the numbness of the upper right extremity. Patient was able to walk but felt very weak on the right side. Discussed with the patient about possible discharge plans and mentioned that he may benefit a rehab facility upon discharge for continued strength and mobility. Patient verbalized understanding and agrees with the plan. Neurology is following closely. Patient underwent an MRI of the brain showing small scattered areas of increased signal within the anterior inferior cerebellum compatible with acute infarct along with hyperintensity and acute ischemic changes within the anterior inferior right cerebellum. Will continue to monitor closely. Guarded prognosis. REVIEW OF SYSTEMS: ENT: No diminished vision or hearing. CARDIOVASCULAR: denies chest pain or palpitations. RESPIRATORY: denies any shortness of breath or cough. GI: No nausea, vomiting or diarrhea. : No dysuria or retention. NERVOUS SYSTEM: reports mild numbness and weakness of the right upper and lower extremities. ALLERGY/IMMUNOLOGY: reports asthma or hay fever. MUSCULOSKELETAL: As mentioned earlier. HEMATOLOGY/ONCOLOGY: No history. ENDOCRINE: No history of diabetes or hypothyroidism. CONSTITUTIONAL: denies fever, fatigue, or malaise. DERMATOLOGY: Negative. Active Medications Amlodipine Besylate (Norvasc) 5 mg PO DAILY [facility] Last Admin: 02/21/19 09:23 Dose: 5 mg Documented by: Aspirin (Aspirin) 325 mg PO DAILY [facility] Last Admin: 02/21/19 09:23 Dose: 325 mg Documented by: Atorvastatin Calcium (Lipitor) 40 mg PO HS [facility] Last Admin: 02/20/19 20:15 Dose: 40 mg Documented by: Budesonide/Formoterol Fumarate (Symbicort 80-4.5 Mcg Inhaler) 2 puff INHALATION RT-BID [facility] Last Admin: 02/21/19 09:17 Dose: 2 puff Documented by: Docusate Sodium (Colace) 100 mg PO Q8HR [facility] Last Admin: 02/21/19 09:23 Dose: 100 mg Documented by: Famotidine (Pepcid) 20 mg PO BID [facility] Last Admin: 02/21/19 09:23 Dose: 20 mg Documented by: Heparin Sodium (Porcine) (Heparin) 0 unit IV PER PROTOCOL PRN; Protocol PRN Reason: Low PTT Last Admin: 02/21/19 03:33 Dose: 2,500 unit Documented by: Sodium Chloride (Saline 0.9%) 1,000 mls @ 20 mls/hr IV .Q24H [facility] Last Admin: 02/20/19 23:20 Dose: Not Given Documented by: Heparin Sodium/Sodium Chloride (25,000 unit/ Sodium Chloride) 250 mls @ 10 mls/hr IV .Q24H [facility]; Protocol Last Titration: 02/21/19 12:05 Dose: 15 units/kg/hr, 15 mls/hr Documented by: Montelukast Sodium (Singulair) 10 mg PO DAILY [facility] Last Admin: 02/21/19 09:23 Dose: 10 mg Documented by: Ondansetron HCl (Zofran) 4 mg IVP Q6HR PRN PRN Reason: Nausea And Vomiting Objective - Vital Signs Vital signs: Vital Signs Temp 97.7 F 02/21/19 08:00 Pulse 72 02/21/19 12:00 Resp 16 02/21/19 12:00 BP 150/84 02/21/19 12:00 Pulse Ox 97 02/21/19 12:00 Intake & Output 02/20/19 02/21/19 02/21/19 18:59 06:59 18:59 Intake Total 960 315.866 721.483 Balance 960 315.866 721.483 Weight 103.3 kg Intake: Intake, IV Titration 315.866 121.483 Amount Heparin Sod,Pork in 0.45% 215.866 81.483 NaCl 25,000 unit In 0.45 % NaCl 1 250ml.bag @ 10 UNITS/KG/HR 10 mls/hr IV .Q24H [facility] Rx#:[id number] Sodium Chloride 0.9% 1, 100 40 000 ml @ 20 mls/hr IV . Q24H [facility] Rx#:[id number] Oral 960 600 Other: Voiding Method Urinal Urinal # Voids 2 1 # Bowel Movements 1 - Exam GENERAL: The patient is alert and oriented x3, not in any acute distress. Well developed, well nourished. Vital signs are stable. Blood pressure is 138/78, pulse is 67, respirations are 16, temp is 97.7F, oxygen saturation is 97% on room air. HEENT: Pupils are round and equally reacting to light. EOMI. No scleral icterus. No conjunctival pallor. Normocephalic, atraumatic. No pharyngeal erythema. No thyromegaly. CARDIOVASCULAR: S1 and S2 present. No murmurs, rubs, or gallops. PULMONARY: Chest is clear to auscultation, no wheezing or crackles. ABDOMEN: Soft, nontender, nondistended, normoactive bowel sounds. No palpable organomegaly. MUSCULOSKELETAL: No joint swelling or deformity. EXTREMITIES: No cyanosis, clubbing, or pedal edema. mild numbess and weakness of the right upper and lower extremity NEUROLOGICAL: deficits as mentioned about right-sided Wallenburg syndrome right-sided with loss of sensation with possible involvement of glossopharyngeal nerve and vagus nerve involvement causing hoarseness of voice which is very mild and the positive Romberg sign with eyes open. numbness of the right upper and lower extremity has slightly improved SKIN: No rashes. - Labs CBC & Chem 7: 02/21/19 02:20 02/19/19 21:30 Labs: Abnormal Lab Results - Last 24 Hours (Table) 02/21/19 02/21/19 02/21/19 Range/Units 02:20 02:20 02:20 WBC 12.7 H (3.8-10.6) k/uL RBC 4.19 L (4.30-5.90) m/uL Hgb 12.4 L (13.0-17.5) gm/dL Hct 36.0 L (39.0-53.0) % Neutrophils # 7.8 H (1.3-7.7) k/uL APTT 41.9 H (22.0-30.0) sec Triglycerides 193 H (<150) mg/dL LDL Cholesterol, Calc 126 H (0-99) mg/dL HDL Cholesterol 32 L (40-60) mg/dL 02/21/19 Range/Units 10:54 WBC (3.8-10.6) k/uL RBC (4.30-5.90) m/uL Hgb (13.0-17.5) gm/dL Hct (39.0-53.0) % Neutrophils # (1.3-7.7) k/uL APTT 53.4 H (22.0-30.0) sec Triglycerides (<150) mg/dL LDL Cholesterol, Calc (0-99) mg/dL HDL Cholesterol (40-60) mg/dL Assessment and Plan Assessment: -Possible cerebrovascular accident involving the posterior circulation on the right side in vertebral basilar territory. 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 Patient's Plavix was discontinued patient was started on IV heparin as per recommendations from neurology and patient will be continued on aspirin. MRI was done as mentioned previously above. Per neuro patient may be started on coumadin with a bridge off IV heparin. -History of previous CVA in the past -history of hypertension history of asthma without any acute exacerbation -dvt prophylaxis: on heparin, early ambulation -gi prophylaxis: pepcid Recommendations and discussion: Recommend continue current medications, management, and symptomatic treatment. Will continue to monitor vital signs and labs closely. Neurology is following. PT/OT are working with the patient. Discussed with the patient at length about possible discharge plans and patient may benefit from a rehab facility upon discharge for continued strength and mobility. Case management and social work to follow for possible rehab upon discharge. Guarded prognosis. Further recommendations to follow.
[2019-02-21] MEDS ORDERED: WARFARIN 5 MG TAB PO ONE (18:15)
[2019-02-21 18:54] LABS: Prothrombin Time 10.8 sec (9.0-12.0)
[2019-02-21] MEDS: ATORVASTATIN 40 MG TAB PO SCH (20:13)
[2019-02-22] MEDS: SODIUM CHLORIDE 0.9% 1,000 ML IV SCH (02:00)
[2019-02-22 07:35] LABS: Basophils # (A) 0.1 k/uL (0-0.2); Basophils % (A) 1 %; Eosinophils # (A) 0.1 k/uL (0-0.7); Eosinophils % (A) 1 %; HGB 12.5 gm/dL (13.0-17.5); Lymphocytes # (A) 3.5 k/uL (1.0-4.8); Lymphocytes % (A) 33 %; MCH 28.7 pg (25.0-35.0); MCHC 32.7 g/dL (31.0-37.0); MCV 87.7 fL (80.0-100.0); Monocytes # (A) 0.6 k/uL (0-1.0); Monocytes % (A) 5 %; Neutrophils # (A) 6.2 k/uL (1.3-7.7); Neutrophils % (A) 57 %; Platelet Count 241 k/uL (150-450); RBC 4.34 m/uL (4.30-5.90); RDW 12.8 % (11.5-15.5); WBC 10.8 k/uL (3.8-10.6)
[2019-02-22 08:04] LABS: Prothrombin Time 10.5 sec (9.0-12.0)
[2019-02-22] MEDS: DOCUSATE 100 MG CAP PO SCH ×3 (08:25→20:11)
[2019-02-22] MEDS: MONTELUKAST 10 MG TAB PO SCH (08:25)
[2019-02-22] MEDS: amLODIPine 5 MG TAB PO SCH (08:25)
[2019-02-22] MEDS: FAMOTIDINE 20 MG TAB PO SCH ×2 (08:25→20:11)
[2019-02-22] MEDS: ASPIRIN 325 MG TAB PO SCH (08:25)
[2019-02-22] MEDS: HEPARIN SOD,PORK IN 0.45% NACL 25,000 UNIT in 0.45% NACL 1 250ML.BAG IV SCH (08:26)
[2019-02-22] MEDS: SYMBICORT 80-4.5 MCG INHALER INHALATION SCH ×2 (08:52→19:57)
--- NOTE | 2019-02-22 17:26 | PN ---
PROGRESS NOTE DATE OF SERVICE: 02/22/2019 This 59-year-old gentleman who was admitted with a history of possible recent right- sided vertebrobasilar stroke is being closely monitored. The patient still has some gait dysfunction. Dr. Hinton is following the patient for possible inpatient rehab at this time. No chest pain. No palpitations. No fever. The patient is able to ambulate with a walker. PHYSICAL EXAMINATION: Alert and oriented x3. Pulse 70, blood pressure 137/74, respiration 16, temperature 98.2, pulse ox 97% on room air. HEENT: Conjunctivae normal. NECK: No jugular venous distention. CARDIOVASCULAR SYSTEM: S1, S2 muffled. RESPIRATORY SYSTEM: Breath sounds diminished at the bases. No rhonchi. No crackles. ABDOMEN: Soft, non-tender. NERVOUS SYSTEM: Minimal incoordination on the right side and gait dysfunction also is present. LABS: WBC 10.8. LDL is 126. HDL is 32. Triglycerides 193. ASSESSMENT: 1. 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 2. History of previous cerebrovascular accident in the past. 3. Hypertension. 4. History of asthma. 5. Deep venous thrombosis prophylaxis. 6. Gastrointestinal prophylaxis. 7. Increased white count. 8. Anemia, normocytic, of undetermined etiology. 9. Hyperlipidemia. RECOMMENDATIONS AND DISCUSSION: I recommend to continue current medications, continue with the monitoring, symptomatic treatment. Continue with antiplatelet agents. Patient is on Lipitor 40 mg. Continue the rest of the medications. DVT prophylaxis. I would also recommend monitoring the PT/INR. A 2D echo was done by Cardiology that showed ejection fraction 55% to 60%. The brain MRI showed acute ischemic changes in the anterior inferior right cerebellum. See orders for further details. Further recommendations to follow. MMODL / IJN: [id number] /
[2019-02-22] MEDS ORDERED: WARFARIN 5 MG TAB PO ONE (18:00)
[2019-02-22 18:52] LABS: Appearance,Urine Clear (Clear); Bilirubin,Urine Negative (Negative); Blood,Urine Negative (Negative); Color,Urine Light Yellow; Glucose,Urine (UA) Negative (Negative); Ketones,Urine Negative (Negative); Leukocyte Esterase,Urine Trace (Negative); Mucus,Urine Rare /hpf; Nitrite,Urine Negative (Negative); Protein,Urine Negative (Negative); Specific Gravity,Urine 1.011 (1.001-1.035); Squamous Epithelial Cell,Urine <1 /hpf (0-4); Urobilinogen,Urine <2.0 mg/dL (<2.0); WBC,Urine 8 /hpf (0-5)
[2019-02-22] MEDS: ATORVASTATIN 40 MG TAB PO SCH (20:11)
[2019-02-23 06:47] LABS: Basophils # (A) 0.1 k/uL (0-0.2); Basophils % (A) 1 %; Eosinophils # (A) 0.3 k/uL (0-0.7); Eosinophils % (A) 3 %; HCT 39.1 % (39.0-53.0); HGB 13.1 gm/dL (13.0-17.5); Lymphocytes # (A) 3.8 k/uL (1.0-4.8); Lymphocytes % (A) 35 %; MCHC 33.4 g/dL (31.0-37.0); MCV 86.8 fL (80.0-100.0); Mean Platelet Volume 6.6; Monocytes # (A) 0.5 k/uL (0-1.0); Monocytes % (A) 4 %; Neutrophils # (A) 6.2 k/uL (1.3-7.7); Neutrophils % (A) 56 %; Platelet Count 249 k/uL (150-450); RBC 4.51 m/uL (4.30-5.90); RDW 12.8 % (11.5-15.5)
[2019-02-23 06:52] LABS: Partial Thromboplastin Time 51.6 sec (22.0-30.0); Prothrombin Time 10.6 sec (9.0-12.0)
[2019-02-23] MEDS: SYMBICORT 80-4.5 MCG INHALER INHALATION SCH ×2 (07:35→20:45)
[2019-02-23] MEDS: amLODIPine 5 MG TAB PO SCH (08:35)
[2019-02-23] MEDS: ASPIRIN 325 MG TAB PO SCH (08:35)
[2019-02-23] MEDS: SODIUM CHLORIDE 0.9% 1,000 ML IV SCH ×2 (08:35→23:55)
[2019-02-23] MEDS: FAMOTIDINE 20 MG TAB PO SCH ×2 (08:35→20:34)
[2019-02-23] MEDS: MONTELUKAST 10 MG TAB PO SCH (08:35)
[2019-02-23] MEDS: DOCUSATE 100 MG CAP PO SCH ×3 (08:35→23:54)
[2019-02-23] MEDS: HEPARIN SOD,PORK IN 0.45% NACL 25,000 UNIT in 0.45% NACL 1 250ML.BAG IV SCH (11:41)
[2019-02-23] MEDS ORDERED: WARFARIN 10 MG TAB PO ONE (18:00)
[2019-02-23] MEDS: ATORVASTATIN 40 MG TAB PO SCH (20:34)
--- NOTE | 2019-02-23 20:41 | PN ---
PROGRESS NOTE DATE OF SERVICE: 02/23/2019. This 59-year-old gentleman was admitted with subacute right-sided vertebrobasilar insufficiency, stroke, is being closely monitored. The patient is also receiving PT/OT evaluation. Inpatient rehab admission with Dr. Hinton is being planned on Sunday. No chest pain. No palpitations. MRI as per Neurology who is following the patient closely. EXAM: Alert and oriented times three. Pulse 70. Blood pressure 143/80, respiration 16, temp 97.4, pulse ox 98% on room air. HEENT: Conjunctivae normal. NECK: No jugular venous distention. CARDIOVASCULAR: S1, S2. RESPIRATORY: Breath sounds diminished in the bases. No rhonchi. No crackles. ABDOMEN is soft. Nervous system: No incoordination, mild gait dysfunction present. LABS: WBC 11, hemoglobin 13.1. No motor weakness. LDL is 126. ASSESSMENT: 1. Subacute right-sided vertebrobasilar stroke with possible lateral malleolus syndrome or Wallenberg syndrome. 2. History of previous cerebrovascular accident in the past. 3. Hypertension. 4. Hyperlipidemia. 5. History of asthma. 6. Deep vein thrombosis prophylaxis. 7. Gastrointestinal prophylaxis. 8. Increased WBC. 9. Anemia, normocytic of undetermined etiology. RECOMMENDATIONS AND DISCUSSION: Recommend to continue current medications, management and symptomatic treatment. Continue the antiplatelet agents and as well as Lipitor. Closely monitor with the patient who is also on Coumadin. The anticoagulation recommendation per neurology. Further recommendations to follow. See orders for further details. MMODL / IJN: [id number] /
[2019-02-24] MEDS: HEPARIN SOD,PORK IN 0.45% NACL 25,000 UNIT in 0.45% NACL 1 250ML.BAG IV SCH ×2 (01:45→17:43)
[2019-02-24] MEDS: SYMBICORT 80-4.5 MCG INHALER INHALATION SCH ×2 (07:53→19:55)
[2019-02-24] MEDS: FAMOTIDINE 20 MG TAB PO SCH ×2 (08:15→21:45)
[2019-02-24] MEDS: MONTELUKAST 10 MG TAB PO SCH (08:15)
[2019-02-24] MEDS: DOCUSATE 100 MG CAP PO SCH ×3 (08:15→23:31)
[2019-02-24] MEDS: amLODIPine 5 MG TAB PO SCH (08:15)
[2019-02-24] MEDS: ASPIRIN 325 MG TAB PO SCH (08:15)
[2019-02-24 11:20] LABS: INR 1.4 (<1.2); Prothrombin Time 14.4 sec (9.0-12.0)
[2019-02-24] MEDS ORDERED: HEPARIN SODIUM,PORCINE 5,000 UNIT/ML 1 ML VIAL IV STA (15:43)
[2019-02-24] MEDS ORDERED: WARFARIN 10 MG TAB PO ONE (18:00)
--- NOTE | 2019-02-24 18:10 | P.PN ---
Subjective Progress Note Date: 02/24/19 Patient states he is doing much better. He states his nausea and vomiting has resolved. He was able to walk more steady. as compared to yesterday. Numbness has improved. No new focal symptoms.. MRI of the brain without contrast yesterday, which reported acute ischemic changes within the anterior inferior, right cerebellum. However when I reviewed the MRI, there is definite acute ischemia in the right lateral Medulla, consistent with Wallenberg syndrome. 2-D echo showed EF 55-60%. Left-ventricular size is normal. The study was technically difficult with suboptimal views. Left atrium was not well visualized. Right atrium was not well visualized. Objective - Vital Signs Vital signs: Vital Signs Temp 97.9 F 02/24/19 13:02 Pulse 75 02/24/19 13:02 Resp 16 02/24/19 13:02 BP 130/78 02/24/19 13:02 Pulse Ox 95 02/24/19 13:02 Intake & Output 02/23/19 02/24/19 02/24/19 18:59 06:59 18:59 Intake Total 1260 211 403.533 Balance 1260 211 403.533 Intake: Intake, IV Titration 140 211 403.533 Amount Heparin Sod,Pork in 0.45% 211 243.533 NaCl 25,000 unit In 0.45 % NaCl 1 250ml.bag @ 10 UNITS/KG/HR 10 mls/hr IV .Q24H [facility] Rx#:[id number] Sodium Chloride 0.9% 1, 140 160 000 ml @ 20 mls/hr IV . Q24H [facility] Rx#:[id number] Oral 1120 Other: Voiding Method Urinal # Voids 1 1 1 # Bowel Movements 0 - Exam Patient's mental status, speech and language functions are normal. Speech is clear. On cranial nerve examination, pupils are round and reacting, visual mota are full. Extra ocular muscles are intact. His face is symmetric and tongue protrudes the midline. Patient has tingling sensation for fine touch on the face. Temperature is equal bilaterally in the face. However in the extremities, he has normal fine touch bilaterally. Temperature sensation is d ecreased on the left side of the body, arm and leg. No ataxia for [id number] testing on either side. Tone and bulk of muscles normal. Muscle strength normal. Reflexes are diminished and plantars are equivocal. - Labs CBC & Chem 7: 02/23/19 06:20 10 21:30 Labs: Abnormal Lab Results - Last 24 Hours (Table) 02/24/19 02/24/19 Range/Units 10:25 10:25 PT 14.4 H (9.0-12.0) sec INR 1.4 H (<1.2) APTT 44.5 H (22.0-30.0) sec Assessment and Plan Assessment: * Acute ischemic stroke involving the right PICA distribution. 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 * Hypertension * Hyperlipidemia Plan: * Patient is doing much better since started on heparin drip. His neurological examination as well as symptoms have improved. * Continue heparin as per protocol. Continue aspirin 325 mg daily. * Patient on Coumadin. INR today is 1.4, PTT 51.6. Target INR 2-3. * Patient to go for PUMA tomorrow to rule out PFO. * Continue Lipitor 40 mg for hyperlipidemia. Hemoglobin A1c 5.3. LDL 126, HDL 32, cholesterol 197. Triglycerides 193. * PT OT. * Possible to rehab after INR therapeutic.
[2019-02-24] MEDS: ATORVASTATIN 40 MG TAB PO SCH (21:45)
[2019-02-24] MEDS: SODIUM CHLORIDE 0.9% 1,000 ML IV SCH (23:33)
--- NOTE | 2019-02-25 00:01 | P.PN ---
Subjective Progress Note Date: 02/24/19 Principal diagnosis: 59-year-old pleasant gentleman came in because of severe headache retro-orbital headache in the right side followed by vertigo or dizziness or spinning around a nd unstable gait. Patient had a CAT scan of the head which did not show any acute stroke but did show old cerebellar stroke. Patient was having symptoms of numbness on the right side of the body. As per the neuro exam by a neurologist patient still have this numbness in the right side of the face right side of the body. 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 Patient undergo repeat MRI and the CT angios. Patient has LDL of 150 because of just start him on statin and neurologist at morning aspirin and Plavix which will be continued echocardiogram will be obtained. Patient was having nausea vomiting as well 02/21/2019 Patient is sitting up in the chair in no acute distress. Patient was working with physical therapy this morning standing at the bedside and states he was having some difficulty with his right lower extremity feeling numb and weak al carson with the numbness of the upper right extremity. Patient was able to walk but felt very weak on the right side. Discussed with the patient about possible discharge plans and mentioned that he may benefit a rehab facility upon discharge for continued strength and mobility. Patient verbalized understanding and agrees with the plan. Neurology is following closely. Patient underwent an MRI of the brain showing small scattered areas of increased signal within the anterior inferior cerebellum compatible with acute infarct along with hyperintensity and acute ischemic changes within the anterior inferior right cerebellum. Will continue to monitor closely. Guarded prognosis. 02/24/2019 Patient is sitting up at the side of the bed with at the bedside. Patient had just finished taking a shower and states that he was under the impression that he would be going to rehab today. Patient was to undergo a PUMA during hospitalization and is being done in the morning after patient has been NPO. Patient also is currently still maintained on a heparin drip as we are bridging towards Coumadin with a INR level of 2-3. INR is currently at 1.4 and will continue to monitor closely. Patient denies any chest pain, shortness of breath, or palpitations at this time. Pt is afebrile. Patient denies any nausea or vomiting and is tolerating diet. Patient states that he still feels the numbness and weakness of the right side. Guarded prognosis. Objective - Vital Signs Vital signs: Vital Signs Temp 98.0 F 02/24/19 21:00 Pulse 74 02/24/19 21:00 Resp 16 02/24/19 21:00 BP 120/75 02/24/19 21:00 Pulse Ox 96 02/24/19 21:00 Intake & Output 02/24/19 02/24/19 02/25/19 06:59 18:59 06:59 Intake Total 211 1153.533 98.883 Balance 211 1153.533 98.883 Intake: Intake, IV Titration 211 403.533 98.883 Amount Heparin Sod,Pork in 0.45% 211 243.533 98.883 NaCl 25,000 unit In 0.45 % NaCl 1 250ml.bag @ 10 UNITS/KG/HR 10 mls/hr IV .Q24H [facility] Rx#:[id number] Sodium Chloride 0.9% 1, 160 000 ml @ 20 mls/hr IV . Q24H [facility] Rx#:[id number] Oral 750 Other: Voiding Method Urinal Toilet Urinal # Voids 1 2 1 # Bowel Movements 0 - Exam GENERAL: The patient is alert and oriented x3, not in any acute distress. Well developed, well nourished. Vital signs are stable. Blood pressure is 136/78, pulse is 73, respirations are 16, temp is 97.8F, oxygen saturation is 95% on room air. HEENT: Pupils are round and equally reacting to light. EOMI. No scleral icterus. No conjunctival pallor. Normocephalic, atraumatic. No pharyngeal erythema. No thyromegaly. CARDIOVASCULAR: S1 and S2 present. No murmurs, rubs, or gallops. PULMONARY: Chest is clear to auscultation, no wheezing or crackles. ABDOMEN: Soft, nontender, nondistended, normoactive bowel sounds. No palpable organomegaly. MUSCULOSKELETAL: No joint swelling or deformity. EXTREMITIES: No cyanosis, clubbing, or pedal edema. mild numbess and weakness of the right upper and lower extremity NEUROLOGICAL: deficits as mentioned about right-sided Wallenburg syndrome right-sided with loss of sensation with possible involvement of glossopharyngeal nerve and vagus nerve involvement causing hoarseness of voice which is very mild and the positive Romberg sign with eyes open. numbness of the right upper and lower extremity has slightly improved SKIN: No rashes. 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 Hypertension Hyperlipidemia History of asthma Deep vein thrombosis prophylaxis GI prophylaxis Increased WBC Anemia, normocytic of undetermined etiology Recommendations and discussion: Recommend continue current medications, management, and symptomatic treatment. Will continue to monitor vital signs and labs closely. Neurology is following. PT/OT are working with the patient. Patient is awaiting a PUMA that was ordered by neurology as well as a therapeutic INR of 2-3. Case management and social work to follow for possible rehab upon discharge. Plan is to go to [facility] rehab upon discharge. Guarded prognosis. Further recommendations to follow. Possible discharge to rehab in 24 hours.
[2019-02-25 05:39] VITALS: TEMP 98.2
[2019-02-25] MEDS: SYMBICORT 80-4.5 MCG INHALER INHALATION SCH (08:20)
[2019-02-25] MEDS: DOCUSATE 100 MG CAP PO SCH (08:24)
[2019-02-25] MEDS: FAMOTIDINE 20 MG TAB PO SCH (08:24)
[2019-02-25] MEDS: MONTELUKAST 10 MG TAB PO SCH (08:24)
[2019-02-25] MEDS ORDERED: fentaNYL (PF) 50 MCG/ML 2 ML AMP ONE (09:58)
[2019-02-25] MEDS ORDERED: IV FLUID CONTINUATION 1,000 ML IV ONE (10:04)
[2019-02-25 10:14] LABS: Partial Thromboplastin Time 57.9 sec (22.0-30.0); Prothrombin Time 19.7 sec (9.0-12.0)
[2019-02-25] MEDS ORDERED: BENZOCAINE SPRAY 1 CAN MUCOUS MEM ONE (10:25)
[2019-02-25] MEDS ORDERED: MIDAZOLAM 2 MG/2 ML VIAL IVP ONE (10:28)
[2019-02-25] MEDS ORDERED: fentaNYL (PF) 50 MCG/ML 2 ML AMP IVP ONE (10:28)
[2019-02-25 10:41] VITALS: PULSE 94; RESP 18
[2019-02-25 10:44] VITALS: BP 135/67
[2019-02-25] MEDS: amLODIPine 5 MG TAB PO SCH (11:16)
[2019-02-25] MEDS: ASPIRIN 325 MG TAB PO SCH (11:16)
--- NOTE | 2019-02-25 11:38 | P.DS ---
Providers Date of admission: 02/20/19 00:15 Expected date of discharge: 02/25/19 Attending physician: Gianfranco Thornton Consults: 02/20/19 00:14 Consult Physician Urgent Consulting Provider: Catrina Bacon Consult Reason/Comments: recent ischemic stroke Do you want consulting provider notified?: Yes 02/20/19 11:32 Consult Physician Routine Consulting Provider: Inocencio Hinton Consult Reason/Comments: stroke Do you want consulting provider notified?: Yes 02/24/19 11:35 Consult Physician Stat Consulting Provider: [facility] Consult Reason/Comments: PUMA ordered, Stroke Do you want consulting provider notified?: Yes Primary care physician: Annmarie Bee [facility] Course: Final diagnosis 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 Patient will continue with Coumadin per neurology recommendations and will need repeat INR levels to maintain therapeutic level of 2-3. Total time taken is 35 minutes. History of present illness This is a 59-year-old male who was recently admitted with severe headache on the right side followed with vertigo and dizziness and spinning and an unsteady gait and was being closely monitored. During hospitalization patient underwent a CAT scan of the head which showed an old cerebellar stroke and was being closely followed by neurology. Patient underwent MRI and MRA which showed complete occlusion of the left vertebral artery. Patient was started on IV heparin and is recently transitioned to Coumadin and will continue with aspirin 325 mg daily. Patient will need re-PT/INR labs to monitor Coumadin therapy and to maintain a level of 2-3 and his INR. Patient's MRI showed small scattered areas of increased signal within the anterior inferior cerebellum compatible with acute infarct along with hyperintensity an acute ischemic changes within the anterior inferior right cerebellum. Patient will follow-up with neurology in the outpatient setting. Patient denies any chest pain, shortness of breath, or palpitations at this time. Patient is afebrile. Patient denies any nausea or vomiting and is tolerating diet. Patient continue to work with PT/OT as he continues to have right-sided numbness and weakness of the upper and lower extremities. Patient underwent a PUMA today which was negative. Currently patient's condition is stable with much improvement and will be going to [facility] for continued rehab. Guarded prognosis. On exam vital signs are stable. His 98.2F, pulse is 62, respirations are 18, blood pressure 125/70, oxygen saturation is 94% on room air. Cardio S1 and S2 are present. Respiratory system shows clear to auscultation. Abdomen is soft, obese, nontender. Nervous system shows no focal deficits with mild right upper and lower extremity numbness and weakness. Please refer to medication reconciliation sheet for a list of medications. Patient Condition at Discharge: Fair Plan - Discharge Summary Discharge Rx Participant: No New Discharge Prescriptions: New Aspirin 325 mg PO DAILY tab Docusate [Colace] 100 mg PO Q8HR cap Warfarin [Coumadin] 5 mg PO ONCE@1800 tab Atorvastatin [Lipitor] 40 mg PO HS tab Famotidine [Pepcid] 20 mg PO BID tab Continue Montelukast [Singulair] 10 mg PO DAILY Budesonide/Formoterol Fumarate [Symbicort 80-4.5 Mcg Inhaler] 2 puff INHALATION RT-BID amLODIPine BESYLATE 5 mg PO DAILY Discontinued Losartan Potassium 50 mg PO DAILY Discharge Medication List Budesonide/Formoterol Fumarate [Symbicort 80-4.5 Mcg Inhaler] 2 puff INHALATION RT-BID 01/16/19 [History] Montelukast [Singulair] 10 mg PO DAILY 01/16/19 [History] amLODIPine BESYLATE 5 mg PO DAILY 01/16/19 [History] Aspirin 325 mg PO DAILY tab 02/25/19 [Rx] Atorvastatin [Lipitor] 40 mg PO HS tab 02/25/19 [Rx] Docusate [Colace] 100 mg PO Q8HR cap 02/25/19 [Rx] Famotidine [Pepcid] 20 mg PO BID tab 02/25/19 [Rx] Warfarin [Coumadin] 5 mg PO ONCE@1800 tab 02/25/19 [Rx] Follow up Appointment(s)/Referral(s): Cristal Anguiano MD [Primary Care Provider] - 1-2 days Johnny Erickson III, MD [STAFF PHYSICIAN] - 1-2 Days Marko Huang MD [Medical Doctor] - 1 Week Ambulatory/Diagnostic Orders: Prothrombin Time INR [LAB.AMB] Time Frame: 1 Day, Location: None Selected Activity/Diet/Wound Care/Special Instructions: Patient is going to [facility] rehab facility Continue current diet Continue working with PT/OT Repeat labs for PT/INR daily for Coumadin therapy INR should be between 2 and 3 Follow-up with primary care provider upon discharge Discharge Disposition: TRANSFER TO SNF/ECF
[2019-02-25] MEDS ORDERED: WARFARIN 5 MG TAB PO ONE (18:00)
--- NOTE | 2019-02-26 13:10 | P.TEE ---
Indications for Procedure(s): Rule out Cardec source of stroke Date of Procedure: 02/25/19 Preoperative Diagnosis: CVA Postoperative Diagnosis: No cardiac source of emboli Procedure(s) Performed: PUMA Description of Procedure(s): INDICATION: This is a 59-year-old gentleman who was admitted to the hospital to CVA. The etiology is unclear. A PUMA examination is requested CONSENT: . Verbal consent is obtained from the patient PROCEDURE: . Patient was brought to the lab in a fasting state. Patient was given IV Versed and fentanyl for sedation. Patient got 1 mg of Versed and 50 g of fentanyl. The throat was sprayed with Cetacaine. A lubricated Omni probe was introduced. The oropharynx and was advanced into the esophagus. Multiple views were obtained. Patient tolerated the procedure well. Color, pulsed and continuous wave Doppler studies were performed along with saline contrast bubble injections. FINDINGS: The aortic valve is tricuspid and function normally. Mitral and tricuspid valves appear to be normal. The left atrial appendage appeared free of any clot. The interatrial septum appeared to be free of any clot. There was no shunt across intra-atrial septum. Contrast saline bubble injection did not show any crossing of the bubbles. The LV function is normal. The aorta appeared to be free of any plaque. The chamber sizes appear to be normal. The LV function is normal IMPRESSION: . Normal study. No Cardec source of emboli noted on this study PLAN: May look for other causes of stroke.
== END 2019-02-25 13:14 | DRG 65 ==
LOC: EC 21:15 → 3SCARD 02-20 00:15 → 4MS4W 02-23 15:41
PROVIDERS: ADMIT Hospitalist; ATTEND Hospitalist
PROC: B246ZZ4 Ultrasonography of Right and Left Heart, Transesophageal (ICD-10-PCS; principal; 2019-02-25 11:00)
DX: I63.542 Cerebral infarction due to unspecified occlusion or stenosis of left cerebellar artery (principal); G45.0 Vertebro-basilar artery syndrome; I67.9 Cerebrovascular disease, unspecified; G46.4 Cerebellar stroke syndrome; G46.3 Brain stem stroke syndrome; G90.2 Horner's syndrome; R29.810 Facial weakness; G83.21 Monoplegia of upper limb affecting right dominant side; R40.2362 Coma scale, best motor response, obeys commands, at arrival to emergency department; R40.2142 Coma scale, eyes open, spontaneous, at arrival to emergency department; R40.2252 Coma scale, best verbal response, oriented, at arrival to emergency department; R29.700 NIHSS score 0; M50.322 Other cervical disc degeneration at C5-C6 level; M51.36 Other intervertebral disc degeneration, lumbar region; J45.909 Unspecified asthma, uncomplicated; I10 Essential (primary) hypertension; I45.10 Unspecified right bundle-branch block; E78.5 Hyperlipidemia, unspecified; K21.9 Gastro-esophageal reflux disease without esophagitis; D64.9 Anemia, unspecified; R27.0 Ataxia, unspecified; E66.9 Obesity, unspecified; Z68.33 Body mass index [BMI] 33.0-33.9, adult; Z79.51 Long term (current) use of inhaled steroids; Z79.899 Other long term (current) drug therapy; Z86.73 Personal history of transient ischemic attack (TIA), and cerebral infarction without residual deficits; Z87.891 Personal history of nicotine dependence; Z87.442 Personal history of urinary calculi; Z98.890 Other specified postprocedural states; Z91.048 Other nonmedicinal substance allergy status; Z82.49 Family history of ischemic heart disease and other diseases of the circulatory system; Z83.3 Family history of diabetes mellitus
CPT/HCPCS: 36415; 70450; 70496; 70498; 70551; 80053; 80061; 81001; 83036; 84484; 85025; 85610; 85652; 85730; 93005; 93306; 93312; 93320; 93325; 94640; 94760; 96374; 96375; 99285

== ENCOUNTER → 2019-04-10 | Outpatient (CLI) | payer BC ==
[2019-04-10 15:14] LABS: Appearance,Urine Clear (Clear); Bilirubin,Urine Negative (Negative); Blood,Urine Trace (Negative); Color,Urine Yellow; Glucose,Urine (UA) Negative (Negative); Ketones,Urine Negative (Negative); Leukocyte Esterase,Urine Negative (Negative); Mucus,Urine Rare /hpf; Nitrite,Urine Negative (Negative); Protein,Urine Negative (Negative); RBC,Urine 2 /hpf (0-5); Specific Gravity,Urine 1.014 (1.001-1.035); Urobilinogen,Urine <2.0 mg/dL (<2.0); WBC,Urine 1 /hpf (0-5)
[2019-04-10 15:15] LABS: INR 1.9 (<1.2); Partial Thromboplastin Time 33.8 sec (22.0-30.0); Prothrombin Time 18.9 sec (9.0-12.0)
[2019-04-10 15:21] LABS: Basophils # (A) 0.1 k/uL (0-0.2); Basophils % (A) 1 %; Eosinophils # (A) 0.3 k/uL (0-0.7); Eosinophils % (A) 3 %; HCT 40.7 % (39.0-53.0); HGB 14.2 gm/dL (13.0-17.5); Lymphocytes # (A) 3.1 k/uL (1.0-4.8); Lymphocytes % (A) 32 %; MCHC 34.8 g/dL (31.0-37.0); MCV 83.3 fL (80.0-100.0); Mean Platelet Volume 7.3; Monocytes # (A) 0.5 k/uL (0-1.0); Monocytes % (A) 5 %; Neutrophils # (A) 5.5 k/uL (1.3-7.7); Neutrophils % (A) 57 %; Platelet Count 266 k/uL (150-450); RBC 4.89 m/uL (4.30-5.90); RDW 12.4 % (11.5-15.5); WBC 9.8 k/uL (3.8-10.6)
[2019-04-10 20:15] LABS: African American GFR (CKD) 84.1 (60.0-200.0); Anion Gap 7.9 mmol/L (4.00-12.00); Carbon Dioxide 27.1 mmol/L (21.6-31.8); Non-African American GFR(CKD) 72.6 (60.0-200.0)
== END | disposition home or self-care (01) ==
LOC: LABWHC1 14:39
PROVIDERS: ATTEND Specialist
DX: I63.549 Cerebral infarction due to unspecified occlusion or stenosis of unspecified cerebellar artery (principal)
CPT/HCPCS: 36415; 80051; 81001; 82565; 84520; 85025; 85610; 85730; 93005

== ENCOUNTER → 2022-10-16 | Outpatient (CLI) | payer BC ==
--- NOTE | 2022-10-16 11:30 | US ---
EXAMINATION TYPE: US carotid duplex BILAT DATE OF EXAM: 10/16/2022 COMPARISON: CLINICAL INDICATION: Male, 62 years old with history of I63.9 CEREBRAL INFARCTION; Hx tia x few years ago. HTN- on meds. TECHNIQUE: Carotid duplex ultrasound examination. Indirect Doppler criteria was utilized. FINDINGS: EXAM MEASUREMENTS: RIGHT: Peak Systolic Velocity (PSV) cm/sec ----- Right CCA: 79.8 ----- Right ICA: 67.1 ----- Right ECA: 139.9 ICA/CCA ratio: 0.8 RIGHT: End Diastole cm/sec ----- Right CCA: 21.5 ----- Right ICA: 23.5 ----- Right ECA: 18.7 LEFT: Peak Systolic Velocity (PSV) cm/sec ----- Left CCA: 64.7 ----- Left ICA: 66.2 ----- Left ECA: 78.7 ICA/CCA ratio: 1.0 LEFT: End Diastole cm/sec ----- Left CCA: 19.7 ----- Left ICA: 19.1 ----- Left ECA: 14.9 VERTEBRALS (direction of flow): Right Vertebral: Antegrade Left Vertebral: Antegrade- Limited visualization Rhythm: Normal SHELLFISH WEIGHER NOTES: Elevated right ECA velocity. Plaque visualized in bilateral bulbs. No significan t stenosis. IMPRESSION: No evidence for hemodynamically significant stenosis. Criteria for Assigning % of Stenosis / Diameter reduction (Estimation based on the indirect measurements of the internal carotid artery velocities (ICA PSV). 1. Normal (no stenosis)=ICA PSV < 125 cm/s: ratio < 2.0: ICA EDV<40 cm/s. 2. Less than 50% stenosis=ICA PSV < 125 cm/s: ratio < 2.0: ICA EDV<40 cm/s. 3. 50 to 69% stenosis=ICA PSV of 125 to 230 cm/s: ration 2.0 ? 4.0: ICA EDV 40-100 cm/s. 4. Greater than 70% stenosis to near occlusion= ICA PSV > 230 cm/s: ratio > 4.0: ICA EDV > 100 cm/s. 5. Near occlusion= ICA PSV velocities may be low or undetectable: variable ratio and ICA EDV. 6. Total occlusion=unable to detect flow.
== END | disposition home or self-care (01) ==
LOC: RADUSWWP 10:47
PROVIDERS: ATTEND Internal Medicine
DX: I63.9 Cerebral infarction, unspecified (principal); I10 Essential (primary) hypertension
CPT/HCPCS: 93880

== ENCOUNTER → 2023-03-19 | Outpatient (CLI) | payer BC ==
--- NOTE | 2023-03-19 13:14 | XR ---
EXAMINATION TYPE: XR foot complete LT DATE OF EXAM: 03/19/2023 CLINICAL HISTORY: pain TECHNIQUE: Frontal, lateral and oblique images of the left foot are obtained. COMPARISON: None. FINDINGS: There is no acute fracture/dislocation evident. The joint spaces appear within normal young its. The overlying soft tissue appears unremarkable. Dorsal calcaneal spur noted. IMPRESSION: There is no acute fracture or dislocation. ICD 10 NO FRACTURE, INITIAL EVALUATION
--- NOTE | 2023-03-19 13:14 | XR ---
EXAMINATION TYPE: XR ankle complete LT DATE OF EXAM: 03/19/2023 COMPARISON: NONE HISTORY: Pain TECHNIQUE: 3 views of the left ankle are submitted for evaluation. FINDINGS: There is no evidence for fracture or dislocation. Ankle mortise is intact. Soft tissues are within normal limits. IMPRESSION: 1. No evidence for acute fracture.
== END | disposition home or self-care (01) ==
LOC: RADXRMAIN 12:13
PROVIDERS: ATTEND Internal Medicine
DX: M79.672 Pain in left foot (principal); M25.572 Pain in left ankle and joints of left foot

== ENCOUNTER → 2023-03-19 | Outpatient (CLI) | payer BC ==
--- NOTE | 2023-03-19 12:21 | US ---
EXAMINATION TYPE: US venous doppler duplex LE BI DATE OF EXAM: 03/19/2023 12:04 PM COMPARISON: NONE CLINICAL INDICATION: Male, 63 years old with history of R60.0 LOCALIZED EDEMA; Edema, no known prior DVT, not on thinners SIDE PERFORMED: Bilateral TECHNIQUE: The lower extremity deep venous system is examined utilizing real time linear array sonog christine with graded compression, doppler sonography and color-flow sonography. VESSELS IMAGED: Common Femoral Vein Deep Femoral Vein Greater Saphenous Vein * Femoral Vein Popliteal Vein Small Saphenous Vein * Proximal Calf Veins (* superficial vessels) Right Leg: Negative for DVT Left Leg: Negative for DVT Attempted to call Dr's office with results- no answer IMPRESSION: Grayscale, color doppler, spectral doppler imaging performed of the deep veins of the lo wer extremities. There is normal flow, compressibility, vascular waveforms.
== END | disposition home or self-care (01) ==
LOC: RADUSWWP 11:25
PROVIDERS: ATTEND Internal Medicine
DX: R60.0 Localized edema (principal)
CPT/HCPCS: 93970

== ENCOUNTER → 2023-03-20 | Outpatient (CLI) | payer BC ==
[2023-03-20 15:25] LABS: Basophils # (A) 0.07 X 10*3/uL (0.00-0.10); Basophils % (A) 0.8 %; Eosinophils # (A) 0.17 X 10*3/uL (0.04-0.35); Eosinophils % (A) 1.9 %; HCT 43.7 % (39.6-50.0); HGB 15.1 g/dL (13.0-17.0); Lymphocytes % (A) 33.1 %; MCH 28.3 pg (27.0-32.0); MCHC 34.6 g/dL (32.0-37.0); MCV 81.8 FL (80.0-97.0); Mean Platelet Volume 10.1 FL (9.5-12.2); Monocytes # (A) 0.68 X 10*3/uL (0.20-1.00); Monocytes % (A) 7.5 %; NRBC Per 100 WBC 0 X 10*3/uL (0.00-0.01); Neutrophils % (A) 56.4 %; Platelet Count 248 X 10*3/uL (140-440); RBC 5.34 X 10*6/uL (4.40-5.60); RDW 12.4 % (11.5-14.5); WBC 9.05 X 10*3/uL (4.50-10.00)
[2023-03-20 15:42] LABS: ALT 33 U/L (10-49); AST 24 U/L (14-35); Albumin 4.3 g/dL (3.8-4.9); Albumin/Globulin Ratio 1.95 Ratio (1.60-3.17); Alkaline Phosphatase 65 U/L (41-126); Blood Urea Nitrogen 10.5 mg/dL (9.0-27.0); Calcium 9.7 mg/dL (8.7-10.3); Carbon Dioxide 26.4 mmol/L (21.6-31.8); Chloride 104 mmol/L (96-109); Chol/HDL Ratio 4.39 Ratio; Globulin 2.2 g/dL (1.6-3.3); Glucose 117 mg/dL (70-110); LDL Cholesterol,Calculated 84.3 mg/dL (0.0-131.0); Potassium 4.5 mmol/L (3.5-5.5); Sodium 142 mmol/L (135-145); Total Bilirubin 0.7 mg/dL (0.3-1.2); Total Protein 6.5 g/dL (6.2-8.2); Uric Acid 6.2 mg/dL (3.7-8.7)
== END | disposition home or self-care (01) ==
LOC: LABWHC1 09:17
PROVIDERS: ATTEND Internal Medicine
DX: Z12.5 Encounter for screening for malignant neoplasm of prostate (principal); I10 Essential (primary) hypertension; M79.672 Pain in left foot; R73.9 Hyperglycemia, unspecified
CPT/HCPCS: 80061; 80053; 84443; 84550; 85025; 83036; 36415; G0103

== ENCOUNTER → 2023-04-17 | Outpatient (CLI) | payer BC ==
--- NOTE | 2023-04-17 12:08 | CA ---
Transthoracic Echo Report Name: Martin Arriaza Age: 63 Gender: M : 1960 Exam Date: 04/17/2023 08:29 Exam Location: [facility] Ht (in): 70 Wt (lb): 245 Ordering Physician: Mian Hanna MD Attending/Referring Phys: Fleet Administrative Assistant Dorys Ordaz RDCS Procedure CPT: Indications: R60.0 LOCALIZED EDEMA Cardiac Hx: Technical Quality: Technically difficult study Contrast 1: Definity Total Dose (mL): 2 Contrast 2: Total Dose (mL): MEASUREMENTS (Male / Female) Normal Values 2D ECHO LV Diastolic Diameter PLAX 4.0 cm 4.2 - 5.9 / 3.9 - 5.3 cm LV Systolic Diameter PLAX 2.3 cm IVS Diastolic Thickness 1.8 cm 0.6 - 1.0 / 0.6 - 0.9 cm LVPW Diastolic Thickness 1.4 cm 0.6 - 1.0 / 0.6 - 0.9 cm LV Relative Wall Thickness 0.8 RV Internal Dim ED PLAX 4.0 cm LA Volume 45.9 cm??? 18 - 58 / 22 - 52 cm??? LA Volume Index 19.2 cm???/m??? 16 - 28 cm???/m??? M-MODE Aortic Root Diameter MM 3.8 cm LA Systolic Diameter MM 3.6 cm LA Ao Ratio MM 1.0 DOPPLER AV Peak Velocity 159.6 cm/s AV Peak Gradient 10.2 mmHg AV Mean Velocity 117.3 cm/s AV Mean Gradient 6.0 mmHg AV Velocity Time Integral 30.8 cm LVOT Peak Velocity 112.2 cm/s LVOT Peak Gradient 5.0 mmHg LVOT Velocity Time Integral 23.0 cm MV Area PHT 4.6 cm??? Mitral E Point Velocity 118.2 cm/s Mitral A Point Velocity 86.2 cm/s Mitral E to A Ratio 1.4 MV Deceleration Time 164.2 ms MV E' Velocity 9.1 cm/s Mitral E to MV E' Ratio 13.0 TR Peak Velocity 235.9 cm/s TR Peak Gradient 22.3 mmHg Right Ventricular Systolic Press 26.2 mmHg FINDINGS Left Ventricle Moderately increased left ventricular wall thickness. Left ventricular cavity size normal. Normal left ventricular systolic function with no obvious regional wall motion abnormalities. Left ventricular ejection fraction is estimated at 55-60 %. Right Ventricle Right ventricular not well visualized. Right ventricular systolic pressure within normal limits. Right Atrium Normal right atrial size. Left Atrium Normal left atrial size. Mitral Valve Structurally normal mitral valve. No mitral stenosis, regurgitation or prolapse. Aortic Valve Trileaflet aortic valve. No aortic valve stenosis or regurgitation. Tricuspid Valve Structurally normal tricuspid valve. Mild tricuspid regurgitation. Pulmonic Valve Pulmonic valve not well visualized. Pericardium No pericardial effusion. Aorta Normal size aortic root and proximal ascending aorta. CONCLUSIONS Technically difficult study. Left ventricular ejection fraction is estimated at 55-60 %. No obvious regional wall motion abnormalities. No LV thrombus on contrast imaging No significant valvular dysfunction No pericardial effusion RVSP estimated around 26 mmHg Previewed by: Dr Yury Combs (Electronically Signed) Final Date: 17 April 2023 12:08
== END | disposition home or self-care (01) ==
LOC: RADECHMAIN 08:26
PROVIDERS: ATTEND Internal Medicine
DX: R60.0 Localized edema (principal)
CPT/HCPCS: 93306; Q9957